=== PATIENT | female | born 1980 | race Caucasian/White ===

== ENCOUNTER 2018-07-30 22:17 | Emergency (ER) | payer SELFPAY ==
[2018-07-30] MEDS ORDERED: Ketorolac 30 MG/ML SDV IVPUSH ONE (22:42)
[2018-07-30] MEDS ORDERED: Sodium Chloride 0.9% 2.5 ML Syringe FLUSH PRN (22:42)
[2018-07-30] MEDS ORDERED: Sodium Chloride 0.9% 1,000 ML IV ONE ×2 (22:42→23:31)
[2018-07-30] MEDS ORDERED: Ondansetron 4 MG/2 ML SDV IVPUSH ONE (22:42)
[2018-07-30] MEDS ORDERED: Sodium Chloride 0.9% 10 ML Syringe FLUSH PRN (22:42)
--- NOTE | 2018-07-30 22:48 | EDM.PDOC ---
ED HPI GENERAL MEDICAL PROBLEM - General Chief Complaint: Back Pain or Injury Stated Complaint: PT HAS BACK PAIN Time Seen by Provider: 07/30/18 22:29 - History of Present Illness INITIAL COMMENTS - FREE TEXT/NARRATIVE: HISTORY AND PHYSICAL: History of present illness: The patient is a 38-year-old female with a significant past medical history of breast cancer for which she had bilateral mastectomy and reconstruction and was told that she was in remission and presents with several weeks of just not feeling well feeling rundown generalized weakness and malaise and over the last 4 days has had lumbar back pain nausea vomiting no appetite and decreased urine output and bowel movements. The patient says that her last bowel movement was normal and she is having small bowel movements that are not hard or diarrhea and not black or bloody. She says she has no appetite and is not eating or drinking very much. The patient does smoke cigarettes and has tried marijuana but denies any other drug use and has no alcohol use. The patient has a history of a bilateral tubal ligation and a cervical ablation and says that last week she did have some spotting of dark blood which she has never had before but she is currently not spotting. 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 The patient has never been tested for the Braca gene but she says that 2 of her sisters did test positive. The patient has no headache or neck pain no chest pain or shortness of breath no cough or upper respiratory symptoms. When she urinates it is not burning or painful and there is no hematuria she does says is dark-colored that she thought also because she has not been taking much fluids. She says that when she does eat or drink that has a metallic taste and she gets nauseated. She has not been able to tolerate anything over the last several days due to the vomiting. She does not have a local provider and she says that she does not do her cancer surveillance on the annual basis. She says that with her reconstructive surgery on her breast they are all implant but she has not felt any unusual masses or seen any skin changes. The patient says that she has lost weight over the last few weeks and cannot quantitate it but she says that she is wearing clothes that she has not worn for many years because they were too tight. Review of systems: As per history of present illness and below otherwise all systems reviewed and negative. Past medical history: As per history of present illness and as reviewed below otherwise noncontributory. Surgical history: As per history of present illness and as reviewed below otherwise noncontributory. Social history: No reported history of drug or alcohol abuse. Family history: As per history of present illness and as reviewed below otherwise noncontributory. Physical exam: General: Well-developed well-nourished female who is nontoxic and vital signs are noted by me. Patient moves easily in the ED and ambulates without assistance. HEENT: Atraumatic, normocephalic, pupils reactive, negative for conjunctival pallor or scleral icterus, mucous membranes moist, throat clear, neck supple, nontender, trachea midline. There is no cervical adenopathy or nuchal rigidity Lungs: Clear to auscultation, breath sounds equal bilaterally, chest nontender. No wheezing stridor or work of breathing There is no axillary lymphadenopathy and no overt masses or lesions in the breasts in the surrounding tissue around the implants Heart: S1S2, regular rhythm and tachycardic rate of my evaluation but no overt murmurs Abdomen: Soft, nondistended, nontender. Negative for masses or hepatosplenomegaly. Negative for costovertebral tenderness. Pelvis: Stable nontender. Genitourinary: Deferred. Rectal: Deferred. Extremities: Atraumatic, negative for cords or calf pain. Neurovascular unremarkable. Full range of motion without defects or deficits Neuro: Awake, alert, oriented. Cranial nerves II through XII unremarkable. Cerebellum unremarkable. Motor and sensory unremarkable throughout. Exam nonfocal. Back: There are no midline step-offs in his defects of the thoracic or lumbar spine no posterior rib or posterior pelvis tenderness and no soft tissue injuries. The patient indicates the upper lumbar area as the site of her discomfort and it is in a bandlike bilateral distribution but there is no reproducible pain on palpation Diagnostics: CBC CMP amylase lipase lactate magnesium level UA with reflex TSH chest x-ray CT scan of the abdomen and pelvis Therapeutics: IV fluids Zofran Toradol Patient's heart rate has normalized with IV fluids. I discussed all testing results with the patient including her potassium of 3.3 , and I have advised eating potassium-rich foods, her dehydration and I've advised pushing hydration as well as her CT scan findings of questionable pelvic congestion and mild disc bulging at L4-L5 L5-S1. The patient has Dr. Cheney at [facility] as her provider and she would like to follow-up with him first and not pursue gynecology for the possible pelvic congestion and that as a possible explanation for her vaginal spotting. I told her that this abnormal bleeding does need to be explored further and that she does need to get that referral from Dr. Cheney and she does not want to code to one of our doctors. She says she does not want to see our providers for this and wants to see [facility]. As for the disc bulges she says that this would explain the back pain she has had and she does not want any pain medications as she does not do well with them. She says she will use [id number] meds and she is agreeable to do a Medrol Dosepak. I strongly advised her to call Dr. Cheney first thing in the morning and schedule this follow-up to further evaluate her poor appetite and weight loss as we were unable to find answers for these problems here. She states understanding Impression: Lower back pain with disc disease, rule out pelvic congestion syndrome, anorexia and weight loss etiology unclear Definitive disposition and diagnosis as appropriate pending reevaluation and review of above. Bilateral Back Pain Score (Numeric/FACES): 8 - Related Data Allergies Allergy/AdvReac Type Severity Reaction Status Date / Time bupropion [From Wellbutrin] Allergy Hives Verified 07/30/18 22:34 theophylline Allergy Other Verified 07/30/18 22:34 Home Meds: Home Meds . [No Known Home Meds] 07/30/18 [History] ED ROS GENERAL - Review of Systems Review Of Systems: ROS reveals no pertinent complaints other than HPI. ED EXAM, GENERAL - Physical Exam Exam: See Below (See dictation) Course - Vital Signs Last Recorded V/S: Last Vital Signs Temp 36.6 C 07/30/18 22:28 Pulse 65 07/31/18 00:25 Resp 18 07/31/18 00:25 BP 108/64 07/31/18 00:25 Pulse Ox 95 07/31/18 00:25 - Orders/Labs/Meds Orders: Active Orders 24 hr Category Date Time Status Sodium Chloride 0.9% [Saline Flush] Med 07/30/18 22:42 Active 10 ml FLUSH ASDIRECTED PRN Sodium Chloride 0.9% [Saline Flush] Med 07/30/18 22:42 Active 2.5 ml FLUSH ASDIRECTED PRN Saline Lock Insert [OM.PC] Stat Oth 07/30/18 22:41 Ordered Medication Orders Sodium Chloride (Saline Flush) 10 ml FLUSH ASDIRECTED PRN PRN Reason: Keep Vein Open Sodium Chloride (Saline Flush) 2.5 ml FLUSH ASDIRECTED PRN PRN Reason: Keep Vein Open Labs: Laboratory Tests 07/30/18 07/30/18 07/30/18 Range/Units 22:46 22:46 22:46 WBC 7.17 (4.0-11.0) K/uL RBC 4.66 (4.30-5.90) M/uL Hgb 14.8 (12.0-16.0) g/dL Hct 42.3 (36.0-46.0) % MCV 90.8 (80.0-98.0) fL MCH 31.8 (27.0-32.0) pg MCHC 35.0 (31.0-37.0) g/dL RDW Std Deviation 42.9 (28.0-62.0) fl RDW Coeff of Hawa 13 (11.0-15.0) % Plt Count 234 (150-400) K/uL MPV 10.70 (7.40-12.00) fL Neut % (Auto) 53.1 (48.0-80.0) % Lymph % (Auto) 34.3 (16.0-40.0) % Sargent % (Auto) 9.8 (0.0-15.0) % Eos % (Auto) 2.0 (0.0-7.0) % Baso % (Auto) 0.8 (0.0-1.5) % Neut # (Auto) 3.8 (1.4-5.7) K/uL Lymph # (Auto) 2.5 H (0.6-2.4) K/uL Sargent # (Auto) 0.7 (0.0-0.8) K/uL Eos # (Auto) 0.1 (0.0-0.7) K/uL Baso # (Auto) 0.1 (0.0-0.1) K/uL Nucleated RBC % 0.0 /100WBC Nucleated RBCs # 0 K/uL Lactate 1.2 (0.20-2.00) mmol/L Sodium 141 (136-145) mmol/L Potassium 3.3 L (3.5-5.1) mmol/L Chloride 101 (98-107) mmol/L Carbon Dioxide 20.7 L (21.0-32.0) mmol/L BUN 9 (7.0-18.0) mg/dL Creatinine 0.8 (0.6-1.0) mg/dL Est Cr Clr Drug Dosing 99.39 mL/min Estimated GFR (MDRD) > 60.0 ml/min Glucose 80 (74-106) mg/dL Calcium 9.0 (8.5-10.1) mg/dL Magnesium 1.7 L (1.8-2.4) mg/dL Total Bilirubin 0.6 (0.2-1.0) mg/dL AST 10 L (15-37) IU/L ALT 13 L (14-63) IU/L Alkaline Phosphatase 39 L (46-116) U/L Total Protein 7.3 (6.4-8.2) g/dL Albumin 4.4 (3.4-5.0) g/dL Globulin 2.9 (2.6-4.0) g/dL Albumin/Globulin Ratio 1.5 (0.9-1.6) Amylase 30 (25-115) U/L Lipase 79 (73-393) U/L TSH 3rd Generation 1.37 (0.36-3.74) uIU/mL Urine Color Urine Appearance Urine pH (5.0-8.0) Ur Specific Ada (1.001-1.035) Urine Protein (NEGATIVE) mg/dL Urine Glucose (UA) (NEGATIVE) mg/dL Urine Ketones (NEGATIVE) mg/dL Urine Occult Blood (NEGATIVE) Urine Nitrite (NEGATIVE) Urine Bilirubin (NEGATIVE) Urine Ictotest Urine Urobilinogen (<2.0) EU/dL Ur Leukocyte Esterase (NEGATIVE) Urine RBC (0-2/HPF) Urine WBC (0-5/HPF) Ur Epithelial Cells (NONE-FEW) Urine Bacteria (NEGATIVE) 07/30/18 Range/Units 22:50 WBC (4.0-11.0) K/uL RBC (4.30-5.90) M/uL Hgb (12.0-16.0) g/dL Hct (36.0-46.0) % MCV (80.0-98.0) fL MCH (27.0-32.0) pg MCHC (31.0-37.0) g/dL RDW Std Deviation (28.0-62.0) fl RDW Coeff of Hawa (11.0-15.0) % Plt Count (150-400) K/uL MPV (7.40-12.00) fL Neut % (Auto) (48.0-80.0) % Lymph % (Auto) (16.0-40.0) % Sargent % (Auto) (0.0-15.0) % Eos % (Auto) (0.0-7.0) % Baso % (Auto) (0.0-1.5) % Neut # (Auto) (1.4-5.7) K/uL Lymph # (Auto) (0.6-2.4) K/uL Sargent # (Auto) (0.0-0.8) K/uL Eos # (Auto) (0.0-0.7) K/uL Baso # (Auto) (0.0-0.1) K/uL Nucleated RBC % /100WBC Nucleated RBCs # K/uL Lactate (0.20-2.00) mmol/L Sodium (136-145) mmol/L Potassium (3.5-5.1) mmol/L Chloride (98-107) mmol/L Carbon Dioxide (21.0-32.0) mmol/L BUN (7.0-18.0) mg/dL Creatinine (0.6-1.0) mg/dL Est Cr Clr Drug Dosing mL/min Estimated GFR (MDRD) ml/min Glucose (74-106) mg/dL Calcium (8.5-10.1) mg/dL Magnesium (1.8-2.4) mg/dL Total Bilirubin (0.2-1.0) mg/dL AST (15-37) IU/L ALT (14-63) IU/L Alkaline Phosphatase (46-116) U/L Total Protein (6.4-8.2) g/dL Albumin (3.4-5.0) g/dL Globulin (2.6-4.0) g/dL Albumin/Globulin Ratio (0.9-1.6) Amylase (25-115) U/L Lipase (73-393) U/L TSH 3rd Generation (0.36-3.74) uIU/mL Urine Color YELLOW Urine Appearance CLEAR Urine pH 5.5 (5.0-8.0) Ur Specific Ada >= 1.030 (1.001-1.035) Urine Protein TRACE H (NEGATIVE) mg/dL Urine Glucose (UA) NEGATIVE (NEGATIVE) mg/dL Urine Ketones >=80 (NEGATIVE) mg/dL Urine Occult Blood NEGATIVE (NEGATIVE) Urine Nitrite NEGATIVE (NEGATIVE) Urine Bilirubin SMALL H (NEGATIVE) Urine Ictotest NEGATIVE Urine Urobilinogen 0.2 (<2.0) EU/dL Ur Leukocyte Esterase NEGATIVE (NEGATIVE) Urine RBC 1-2 (0-2/HPF) Urine WBC 0-2 (0-5/HPF) Ur Epithelial Cells MODERATE (NONE-FEW) Urine Bacteria FEW (NEGATIVE) Meds: Medications Generic Name Dose Route Start Last Admin Trade Name Martin PRN Reason Stop Dose Admin Sodium Chloride 10 ml 07/30/18 22:42 Saline Flush FLUSH ASDIRECTED PRN Keep Vein Open Sodium Chloride 2.5 ml 07/30/18 22:42 Saline Flush FLUSH ASDIRECTED PRN Keep Vein Open Discontinued Medications Generic Name Dose Route Start Last Admin Trade Name Martin PRN Reason Stop Dose Admin Sodium Chloride 1,000 mls @ 999 mls/hr 07/30/18 22:42 07/30/18 22:48 Normal Saline IV 07/30/18 23:42 999 mls/hr STAT ONE Administration Sodium Chloride 1,000 mls @ 999 mls/hr 07/30/18 23:31 07/31/18 00:29 Normal Saline IV 07/31/18 00:31 999 mls/hr STAT ONE Administration Iopamidol 100 ml 07/31/18 00:18 07/31/18 00:27 Isovue-370 (76%) IVPUSH 07/31/18 00:19 100 ml ONETIME ONE Administration Ketorolac Tromethamine 30 mg 07/30/18 22:42 07/30/18 22:50 Toradol IVPUSH 07/30/18 22:43 30 mg ONETIME ONE Administration Ondansetron HCl 4 mg 07/30/18 22:42 07/30/18 22:49 Roosevelt IVPUSH 07/30/18 22:43 4 mg ONETIME ONE Administration Departure - Departure Time of Disposition: 01:47 Disposition: Home, Self-Care 01 Condition: Good Clinical Impression: Lumbar disc disease, Unexplained weight loss - Discharge Information Referrals: PCP,None [Primary Care Provider] - Forms: ED Department Discharge Additional Instructions: The following information is given to patients seen in the emergency department who are being discharged to home. This information is to outline your options for follow-up care. We provide all patients seen in our emergency department with a follow-up referral. The need for follow-up, as well as the timing and circumstances, are variable depending upon the specifics of your emergency department visit. If you don't have a primary care physician on staff, we will provide you with a referral. We always advise you to contact your personal physician following an emergency department visit to inform them of the circumstance of the visit and for follow-up with them and/or the need for any referrals to a consulting specialist. The emergency department will also refer you to a specialist when appropriate. This referral assures that you have the opportunity for followup care with a specialist. All of these measure are taken in an effort to provide you with optimal care, which includes your followup. Under all circumstances we always encourage you to contact your private physician who remains a resource for coordinating your care. When calling for followup care, please make the office aware that this follow-up is from your recent emergency room visit. If for any reason you are refused follow-up, please contact the [facility] emergency department at and ask to speak to the emergency department charge nurse. [address] [place] [address] Push hydration with electrolyte solutions as well as water and avoid caffeinated products to improve your hydration status. Please try to eat some potassium-rich foods such as bananas and whole gr for your slightly low potassium level. Please fill the prescription for the Medrol Dosepak and use [id number] medications for pain management for your lumbar back pain. Please contact Dr. Cheney in the morning and schedule a follow-up appointment so that you can further investigate your unexplained weight loss as well as get referral to a technical healthcare consultant of your choosing. Return to the ER As needed and as discussed - My Orders Last 24 Hours: My Active Orders 07/30/18 22:41 Saline Lock Insert [OM.PC] Stat 07/30/18 22:42 Sodium Chloride 0.9% [Saline Flush] 10 ml FLUSH ASDIRECTED PRN Sodium Chloride 0.9% [Saline Flush] 2.5 ml FLUSH ASDIRECTED PRN - Assessment/Plan Last 24 Hours: My Active Orders 07/30/18 22:41 Saline Lock Insert [OM.PC] Stat 07/30/18 22:42 Sodium Chloride 0.9% [Saline Flush] 10 ml FLUSH ASDIRECTED PRN Sodium Chloride 0.9% [Saline Flush] 2.5 ml FLUSH ASDIRECTED PRN
[2018-07-30 23:39] LABS: CHLORIDE,CL 101 mmol/L (98-107); SODIUM,NA 141 mmol/L (136-145)
--- NOTE | 2018-07-30 23:43 | CR ---
INDICATION: pain/sob TECHNIQUE: Chest 1 view. COMPARISON: None. FINDINGS: Cardiovascular and mediastinum: Heart size and vasculature are normal in caliber and appearance. Mediastinum is within normal limits. Lungs and pleural space: Lungs are clear. No sign of infiltrate or mass. No sign of pleural effusion. No pneumothorax. Bones and soft tissues: No significant findings. IMPRESSION: Unremarkable chest. Dictated by: Hernando Sharp MD @ 07/30/2018 23:40:40 (Electronically Signed)
[2018-07-31] MEDS ORDERED: Iopamidol 755 Mg/ML 100 ML Bottle IVPUSH ONE (00:18)
--- NOTE | 2018-07-31 01:29 | CT ---
INDICATION: Abdominal pain TECHNIQUE: CT abdomen and pelvis acquired with IV contrast. 100 mL of Isovue 370 administered. COMPARISON: None available FINDINGS: Lower chest: Unremarkable. Breast implants. Liver: Unremarkable. Spleen: Unremarkable. Pancreas: Unremarkable. Gallbladder and bile ducts: Unremarkable. Adrenal glands: Unremarkable. Kidneys: No hydronephrosis. Subcentimeter right renal low-density lesions, statistically small cysts. GI tract: No bowel obstruction. No evidence of appendicitis. No significant pericolonic changes. Vascular structures: Normal aortic caliber. Asymmetrical opacification of the left parametrial and gonadal veins. Lymph nodes: Unremarkable. Miscellaneous: No free air or significant free fluid. Pelvic Organs: A 1.1 x 0.7 cm low-attenuation focus in the right uterine fundus, nonspecific. A contracted bladder. Bones: Disc protrusions/extrusions at L4-5 and L5-S1. IMPRESSION: No evidence of an acute process in the abdomen or pelvis. Asymmetrical opacification of the left parametrial and gonadal veins. Correlate clinically for unilateral pelvic congestion syndrome. A small uterine low-density focus, nonspecific. Followup with sonographic evaluation. Dictated by Víctor Brya MD @ 07/31/2018 1:28:24 AM Please note that all CT scans at this facility use dose modulation, iterative reconstruction, and/or weight-based dosing when appropriate to reduce radiation dose to as low as reasonably achievable. Dictated by: Víctor Bray MD @ 07/31/2018 01:28:36 (Electronically Signed)
== END 2018-07-31 02:00 | disposition home or self-care (01) ==
LOC: MW.ED 22:17
DX: M51.9 Unspecified thoracic, thoracolumbar and lumbosacral intervertebral disc disorder (principal); R63.4 Abnormal weight loss; Z88.8 Allergy status to other drugs, medicaments and biological substances
CPT/HCPCS: 36415; 71046; 74177; 80053; 81001; 82150; 83605; 83690; 83735; 84443; 85025; 96361; 96374; 96375; 99284; J1885; J2405; J7040; Q9967

== ENCOUNTER 2018-08-07 11:05 | Observation (INO) | payer OTHER ==
--- NOTE | 2018-08-07 11:19 | EDM.PDOC ---
ED HPI GENERAL MEDICAL PROBLEM - General Chief Complaint: Gastrointestinal Problem Stated Complaint: CAN'T EAT OR DRINK Time Seen by Provider: 08/07/18 11:09 - History of Present Illness INITIAL COMMENTS - FREE TEXT/NARRATIVE: HISTORY AND PHYSICAL: History of present illness: Patient is a 38-year-old white female who presents with concern of unexplained weight loss she states several months prior she was approximately 170 pounds she has lost upwards of 30 pounds. Patient states she was seen in the recent past in the ER had a CT scan of her abdomen and a chest x-ray that was remarkable for some degenerative disc disease nothing else. Since then she is not been able to tolerate anything by mouth she states she is basically had 2 popsicles in 8 days she has been seen by her primary care doctor who referred her here today after having had a bad weekend and still not been able tolerate any by mouth. She is a smoker she drinks on hockey weekends and denies any drug abuse. Review of systems: As per history of present illness and below otherwise all systems reviewed and negative. Past medical history: As per history of present illness and as reviewed below otherwise noncontributory. Surgical history: As per history of present illness and as reviewed below otherwise noncontributory. Social history: No reported history of drug or alcohol abuse. Family history: As per history of present illness and as reviewed below otherwise noncontributory. Physical exam: HEENT: Atraumatic, normocephalic, pupils reactive, negative for conjunctival pallor or scleral icterus, mucous membranes dry, throat clear, neck supple, nontender, trachea midline. Lungs: Clear to auscultation, breath sounds equal bilaterally, chest nontender. Heart: S1S2, regular, negative for clicks, rubs, or JVD. Abdomen: Soft, nondistended, nontender. Negative for masses or hepatosplenomegaly. Negative for costovertebral tenderness. Pelvis: Stable nontender. Genitourinary: Deferred. Rectal: Deferred. Extremities: Atraumatic, negative for cords or calf pain. Neurovascular unremarkable. Neuro: Awake, alert, oriented. Cranial nerves II through XII unremarkable. Cerebellum unremarkable. Motor and sensory unremarkable throughout. Exam nonfocal. Diagnostics: CBC CMP EKG UA TSH H pylori hCG Therapeutics: Saline 1 L bolus Zofran 4 mg IV Impression: #1 unexplained weight loss #2 odynophagia Definitive disposition and diagnosis as appropriate pending reevaluation and review of above. - Related Data Allergies Allergy/AdvReac Type Severity Reaction Status Date / Time bupropion [From Wellbutrin] Allergy Hives Verified 08/07/18 11:12 theophylline Allergy Other Verified 08/07/18 11:12 Home Meds: Home Meds Promethazine [Phenergan] 25 mg PO TID PRN 08/07/18 [History] Past Medical History HEENT History: Reports: None Cardiovascular History: Reports: None Respiratory History: Reports: Asthma Gastrointestinal History: Reports: Hiatal Hernia Genitourinary History: Reports: None [employer] History: Reports: Endometrial Ablation, Musculoskeletal History: Reports: None Neurological History: Reports: None Psychiatric History: Reports: None Endocrine/Metabolic History: Reports: None Hematologic History: Reports: None Oncologic (Cancer) History: Reports: Breast Dermatologic History: Reports: Eczema - Infectious Disease History Infectious Disease History: Reports: Chicken Pox - Past Surgical History GI Surgical History: Reports: Appendectomy, Colonoscopy, EGD Female Surgical History: Reports: Breast Biopsy, Breast Implant, Breast Reconstruction, Section, Endometrial Ablation, Mastectomy, Tubal Ligation Oncologic Surgical History: Reports: Biopsy of Breast, Lumpectomy, Mastectomy Social & Family History - Caffeine Use Caffeine Use: Reports: Coffee ED ROS GENERAL - Review of Systems Review Of Systems: ROS reveals no pertinent complaints other than HPI. ED EXAM, GENERAL - Physical Exam Exam: See Below (See dictation) Course - Vital Signs Last Recorded V/S: Last Vital Signs Temp 36.3 C 08/07/18 11:15 Pulse 78 08/07/18 12:00 Resp 13 08/07/18 12:00 BP 100/73 08/07/18 12:00 Pulse Ox 99 08/07/18 12:00 - Orders/Labs/Meds Orders: Active Orders 24 hr Category Date Time Status EKG Documentation Completion [RC] STAT Care 08/07/18 11:35 Active TSH [CHEM] Stat Lab 08/07/18 11:37 Received cefTRIAXone [Rocephin in Dextrose,Iso-Osm 1 GM/50 ML] 1 Med 08/07/18 13:17 Active gm Premix Bag 1 bag IV ONETIME Medication Orders Ceftriaxone Sodium/Dextrose 1 (gm/ Premix) 50 mls @ 100 mls/hr IV ONETIME ONE Stop: 08/07/18 13:46 Labs: Laboratory Tests 08/07/18 08/07/18 08/07/18 Range/Units 11:20 11:20 11:20 WBC 6.17 (4.0-11.0) K/uL RBC 5.07 (4.30-5.90) M/uL Hgb 15.8 (12.0-16.0) g/dL Hct 46.5 H (36.0-46.0) % MCV 91.7 (80.0-98.0) fL MCH 31.2 (27.0-32.0) pg MCHC 34.0 (31.0-37.0) g/dL RDW Std Deviation 44.9 (28.0-62.0) fl RDW Coeff of Hawa 13 (11.0-15.0) % Plt Count 206 (150-400) K/uL MPV 10.80 (7.40-12.00) fL Neut % (Auto) 60.8 (48.0-80.0) % Lymph % (Auto) 27.2 (16.0-40.0) % [place] % (Auto) 9.4 (0.0-15.0) % Eos % (Auto) 1.5 (0.0-7.0) % Baso % (Auto) 1.1 (0.0-1.5) % Neut # (Auto) 3.8 (1.4-5.7) K/uL Lymph # (Auto) 1.7 (0.6-2.4) K/uL [place] # (Auto) 0.6 (0.0-0.8) K/uL Eos # (Auto) 0.1 (0.0-0.7) K/uL Baso # (Auto) 0.1 (0.0-0.1) K/uL Nucleated RBC % 0.0 /100WBC Nucleated RBCs # 0 K/uL INR 1.17 Sodium 141 (136-145) mmol/L Potassium 3.3 L (3.5-5.1) mmol/L Chloride 102 (98-107) mmol/L Carbon Dioxide 21.2 (21.0-32.0) mmol/L BUN 12 (7.0-18.0) mg/dL Creatinine 0.9 (0.6-1.0) mg/dL Est Cr Clr Drug Dosing 84.47 mL/min Estimated GFR (MDRD) > 60.0 ml/min Glucose 99 (74-106) mg/dL Calcium 9.3 (8.5-10.1) mg/dL Total Bilirubin 0.6 (0.2-1.0) mg/dL AST 13 L (15-37) IU/L ALT 15 (14-63) IU/L Alkaline Phosphatase 39 L (46-116) U/L Total Protein 7.9 (6.4-8.2) g/dL Albumin 4.8 (3.4-5.0) g/dL Globulin 3.1 (2.6-4.0) g/dL Albumin/Globulin Ratio 1.5 (0.9-1.6) Lipase 85 (73-393) U/L HCG, Qual (NEG) Urine Color Urine Appearance Urine pH (5.0-8.0) Ur Specific [place] (1.001-1.035) Urine Protein (NEGATIVE) mg/dL Urine Glucose (UA) (NEGATIVE) mg/dL Urine Ketones (NEGATIVE) mg/dL Urine Occult Blood (NEGATIVE) Urine Nitrite (NEGATIVE) Urine Bilirubin (NEGATIVE) Urine Ictotest Urine Urobilinogen (<2.0) EU/dL Ur Leukocyte Esterase (NEGATIVE) Urine RBC (0-2/HPF) Urine WBC (0-5/HPF) Ur Epithelial Cells (NONE-FEW) Urine Bacteria (NEGATIVE) Urine Mucus (NONE-MOD) Urinalysis Comment H. pylori IgG Antibody (NEG) 08/07/18 08/07/18 08/07/18 Range/Units 11:20 11:28 11:37 WBC (4.0-11.0) K/uL RBC (4.30-5.90) M/uL Hgb (12.0-16.0) g/dL Hct (36.0-46.0) % MCV (80.0-98.0) fL MCH (27.0-32.0) pg MCHC (31.0-37.0) g/dL RDW Std Deviation (28.0-62.0) fl RDW Coeff of Hawa (11.0-15.0) % Plt Count (150-400) K/uL MPV (7.40-12.00) fL Neut % (Auto) (48.0-80.0) % Lymph % (Auto) (16.0-40.0) % [place] % (Auto) (0.0-15.0) % Eos % (Auto) (0.0-7.0) % Baso % (Auto) (0.0-1.5) % Neut # (Auto) (1.4-5.7) K/uL Lymph # (Auto) (0.6-2.4) K/uL [place] # (Auto) (0.0-0.8) K/uL Eos # (Auto) (0.0-0.7) K/uL Baso # (Auto) (0.0-0.1) K/uL Nucleated RBC % /100WBC Nucleated RBCs # K/uL INR Sodium (136-145) mmol/L Potassium (3.5-5.1) mmol/L Chloride (98-107) mmol/L Carbon Dioxide (21.0-32.0) mmol/L BUN (7.0-18.0) mg/dL Creatinine (0.6-1.0) mg/dL Est Cr Clr Drug Dosing mL/min Estimated GFR (MDRD) ml/min Glucose (74-106) mg/dL Calcium (8.5-10.1) mg/dL Total Bilirubin (0.2-1.0) mg/dL AST (15-37) IU/L ALT (14-63) IU/L Alkaline Phosphatase (46-116) U/L Total Protein (6.4-8.2) g/dL Albumin (3.4-5.0) g/dL Globulin (2.6-4.0) g/dL Albumin/Globulin Ratio (0.9-1.6) Lipase (73-393) U/L HCG, Qual NEGATIVE (NEG) Urine Color YELLOW Urine Appearance SLT CLOUDY Urine pH 6.0 (5.0-8.0) Ur Specific [place] >= 1.030 (1.001-1.035) Urine Protein 30 H (NEGATIVE) mg/dL Urine Glucose (UA) NEGATIVE (NEGATIVE) mg/dL Urine Ketones >=80 (NEGATIVE) mg/dL Urine Occult Blood TRACE-INTACT H (NEGATIVE) Urine Nitrite NEGATIVE (NEGATIVE) Urine Bilirubin MODERATE H (NEGATIVE) Urine Ictotest Urine Urobilinogen 0.2 (<2.0) EU/dL Ur Leukocyte Esterase NEGATIVE (NEGATIVE) Urine RBC 0-2 (0-2/HPF) Urine WBC 3-5 (0-5/HPF) Ur Epithelial Cells MODERATE (NONE-FEW) Urine Bacteria 2+ H (NEGATIVE) Urine Mucus MODERATE (NONE-MOD) Urinalysis Comment H. pylori IgG Antibody POSITIVE H (NEG) Meds: Medications Generic Name Dose Route Start Last Admin Trade Name Freq PRN Reason Stop Dose Admin Ceftriaxone Sodium/Dextrose 1 50 mls @ 100 mls/hr 08/07/18 13:17 gm/ Premix IV 08/07/18 13:46 ONETIME ONE Discontinued Medications Generic Name Dose Route Start Last Admin Trade Name Freq PRN Reason Stop Dose Admin Sodium Chloride 1,000 mls @ 999 mls/hr 08/07/18 11:35 08/07/18 11:42 Normal Saline IV 08/07/18 12:35 999 mls/hr STAT ONE Administration Iopamidol 75 ml 08/07/18 12:36 08/07/18 12:37 Isovue Multipack-370 (76%) IVPUSH 08/07/18 12:37 75 ml ONETIME ONE Administration Ondansetron HCl 4 mg 08/07/18 11:35 08/07/18 11:42 Zofran IVPUSH 08/07/18 11:36 4 mg ONETIME ONE Administration Departure - Departure Time of Disposition: 13:23 Disposition: Refer to Observation Condition: Good Clinical Impression: Unexplained weight loss, Odynophagia, Dehydration, UTI (urinary tract infection ) - Discharge Information Referrals: Eduar Verma MD [Primary Care Provider] - Forms: ED Department Discharge - My Orders Last 24 Hours: My Active Orders 08/07/18 11:35 EKG Documentation Completion [RC] STAT 08/07/18 11:37 TSH [CHEM] Stat 08/07/18 13:17 cefTRIAXone [Rocephin in Dextrose,Iso-Osm 1 GM/50 ML] 1 gm Premix Bag 1 bag IV ONETIME - Assessment/Plan Last 24 Hours: My Active Orders 08/07/18 11:35 EKG Documentation Completion [RC] STAT 08/07/18 11:37 TSH [CHEM] Stat 08/07/18 13:17 cefTRIAXone [Rocephin in Dextrose,Iso-Osm 1 GM/50 ML] 1 gm Premix Bag 1 bag IV ONETIME
[2018-08-07] MEDS ORDERED: Sodium Chloride 0.9% 1,000 ML IV ONE (11:35)
[2018-08-07] MEDS ORDERED: Ondansetron 4 MG/2 ML SDV IVPUSH ONE (11:35)
[2018-08-07 12:10] LABS: CHLORIDE,CL 102 mmol/L (98-107); SODIUM,NA 141 mmol/L (136-145)
[2018-08-07] MEDS ORDERED: Iopamidol 755 MG/ML 200 ML Multipack Bottle IVPUSH ONE (12:36)
--- NOTE | 2018-08-07 13:07 | CT ---
EXAMINATION: CT chest with contrast HISTORY: Shortness of breath COMPARISON: Radiograph dated 07/30/2018 TECHNIQUE: Axial CT imaging obtained through the chest following the administration of 75 mL of Isovue-370 left antecubital fossa. Coronal and sagittal reconstructions obtained. FINDINGS: The lung bases are clear, no pleural effusion. The heart is normal in size without a pericardial effusion. No mediastinal, hilar, or axillary lymphadenopathy. The thoracic aorta is normal in caliber. The main and central pulmonary arteries are patent without evidence of a pulmonary embolism. Central airways are clear. Breast implants are noted. There is focal fatty infiltration near the falciform ligament. No suspicious osseous abnormalities identified. IMPRESSION: No acute cardiopulmonary finding.
[2018-08-07] MEDS ORDERED: cefTRIAXone 1 GM in Premix Bag 1 BAG IV ONE (13:17)
[2018-08-07] MEDS ORDERED: Sodium Chloride 0.45% with KCl 1,000 ML IV SCH (14:30)
[2018-08-07] MEDS ORDERED: Lactated Ringers 1,000 ML IV ONE (14:38)
--- NOTE | 2018-08-07 14:54 | PCM.HP ---
<Arabella Luna M - Last Filed: 08/07/18 15:15> H&P History of Present Illness - General Date of Service: 08/07/18 Admit Problem/Dx: Admission Diagnosis/Problem Admission Diagnosis/Problem Unexplained weight loss Source of Information: Patient History Limitations: Reports: No Limitations - History of Present Illness Initial Comments - Free Text/Narative: This 38 year old female with pmh of breast ca with double mastectomy, hiatal hernia with past H pylori infection presented to the ED today with continuing concerns of N/V and painful, difficult swallowing. She reports this all started approximately 1 week ago, but reports the N/V started intermittently before then. She reports pain is elicited after she eats, which then she experiences N/ V She reports she is having a tough time swallowing anything, even water. She reports she lets popsicles melt to then swallow them and even small tablets of Phenergan she is having a tough time swallowing. She denies overt abdominal pain , does not know when her last bowel movement was. . She reports in she was diagnosed with hiatal hernia and H pylori. She has had no issues since then. She denies black or blood in BMs, no blood in her emesis or no coffee ground emesis. She denies fevers, chills or dyspnea. NO chest pain or abdominal pain. reports some burning with urination. No neurological concerns. Mild headache intermittently. No neck pain or visual concerns. In the ED, no leukocytosis noted. Hgb 15.8 and HCT 46.5. K+ 3.3 Mg 1.8 and phos 2.5 TSH 1.59. HCG negative. H pylori antibody +, Chest CT negative. UA very concentrated, +2 bacteria noted. Rocephin given in the ED along with Zofran and 1 L fluids. She was admitted for N/V and odynophagia. Upon review of outpatient record, she did recently have RUQ US with Dr Verma as well, which was negative. HIDA scan was possibility as well as EGD to further evaluate causes. PCP, Dr Verma back Pain Score (Numeric/FACES): 2 - Related Data Allergies/Adverse Reactions: Allergies Allergy/AdvReac Type Severity Reaction Status Date / Time bupropion [From Wellbutrin] Allergy Hives Verified 08/07/18 11:12 theophylline Allergy Other Verified 08/07/18 11:12 Home Medications: Home Meds Promethazine [Phenergan] 25 mg PO TID PRN 08/07/18 [History] Past Medical History HEENT History: Reports: None Cardiovascular History: Reports: None. Denies: Afib, Blood Clots/VTE/DVT, CAD, [place] Respiratory History: Reports: Asthma. Denies: COPD Gastrointestinal History: Reports: Helicobacter Pylori, Hiatal Hernia Genitourinary History: Reports: None. Denies: Chronic Renal Insuffiency [employer] CONTACT LENS History: Reports: Endometrial Ablation, Musculoskeletal History: Reports: None Neurological History: Reports: None. Denies: CVA, TIA Psychiatric History: Reports: None Endocrine/Metabolic History: Reports: None. Denies: Diabetes, Type II, Obesity/ BMI 30+ Hematologic History: Reports: None Oncologic (Cancer) History: Reports: Breast (double mastectomy with reconstruction) Dermatologic History: Reports: Eczema - Infectious Disease History Infectious Disease History: Reports: Chicken Pox - Past Surgical History GI Surgical History: Reports: Appendectomy, Colonoscopy, EGD Female Surgical History: Reports: Breast Biopsy, Breast Implant, Breast Reconstruction, Section, Endometrial Ablation, Mastectomy, Tubal Ligation Oncologic Surgical History: Reports: Biopsy of Breast, Lumpectomy, Mastectomy Social & Family History - Family History Family Medical History: Noncontributory - Tobacco Use Smoking Status *Q: Current Every Day Smoker Years of Tobacco use: 5 Packs/Tins Daily: 0.5 Smoking Cessation Information Provided To Patient: Yes - Caffeine Use Caffeine Use: Reports: Coffee - Alcohol Use Alcohol Use History: No Alcohol Use Frequency: Socially - Recreational Drug Use Recreational Drug Use: Yes Recreational Drug Type: Reports: Marijuana/Hashish Recreational Drug Use Frequency: Rarely - Living Situation & Occupation Occupation: Employed H&P Review of Systems - Review of Systems: Review Of Systems: See Below General: Reports: Malaise, Weakness, Decreased Appetite. Denies: Fever, Chills HEENT: Reports: Headaches (intermittently). Denies: Sinus Congestion, Sore Throat, Visual Changes Pulmonary: Reports: No Symptoms. Denies: Shortness of Breath, Cough, Sputum Cardiovascular: Reports: No Symptoms. Denies: Chest Pain, Edema, Lightheadedness, Syncope Gastrointestinal: Reports: Black Stool, Bloody Stool, Constipation, Decreased Appetite, Difficulty Swallowing, Nausea, Vomiting. Denies: Abdominal Pain Genitourinary: Reports: Dysuria, Burning. Denies: Urgency Musculoskeletal: Reports: No Symptoms. Denies: Neck Pain Skin: Reports: No Symptoms Psychiatric: Reports: No Symptoms Neurological: Reports: No Symptoms Hematologic/Lymphatic: Reports: No Symptoms Immunologic: Reports: No Symptoms Exam - Exam Exam: See Below - Vital Signs Vital Signs: Last Vital Signs Temp 98.5 F 08/07/18 14:10 Pulse 80 08/07/18 14:10 Resp 16 08/07/18 14:10 BP 109/76 08/07/18 14:10 Pulse Ox 99 08/07/18 14:10 Weight: 64.4 kg - Exam General: Alert, Oriented, Cooperative HEENT: Conjunctiva Clear, Posterior Pharynx Clear. No: Mucosa Moist & Nicolaus ( tongue and mucous membranes very dry ) Neck: Supple, Trachea Midline Lungs: Clear to Auscultation, Normal Respiratory Effort Cardiovascular: Regular Rate, Regular Rhythm GI/Abdominal Exam: Normal Bowel Sounds, Soft, No Mass, Tender (mild epigastric and LUQ tenderness to palpation.) Back Exam: Normal Inspection, Full Range of Motion Extremities: Normal Inspection, Normal Range of Motion, Non-Tender, No Pedal Edema Skin: Warm, Dry, Other (mild tenting noted.) Neuro Extensive - Mental Status: Alert, Oriented x3 Neuro Extensive - Motor, Sensory, Reflexes: CN II-XII Intact Psychiatric: Alert, Normal Affect, Normal Mood - Patient Data Lab Results Last 24 hrs: Laboratory Results - last 24 hr 08/07/18 08/07/18 08/07/18 Range/Units 11:20 11:20 11:20 WBC 6.17 (4.0-11.0) K/uL RBC 5.07 (4.30-5.90) M/uL Hgb 15.8 (12.0-16.0) g/dL Hct 46.5 H (36.0-46.0) % MCV 91.7 (80.0-98.0) fL MCH 31.2 (27.0-32.0) pg MCHC 34.0 (31.0-37.0) g/dL RDW Std Deviation 44.9 (28.0-62.0) fl RDW Coeff of [place] 13 (11.0-15.0) % Plt Count 206 (150-400) K/uL MPV 10.80 (7.40-12.00) fL Neut % (Auto) 60.8 (48.0-80.0) % Lymph % (Auto) 27.2 (16.0-40.0) % [place] % (Auto) 9.4 (0.0-15.0) % Eos % (Auto) 1.5 (0.0-7.0) % Baso % (Auto) 1.1 (0.0-1.5) % Neut # (Auto) 3.8 (1.4-5.7) K/uL Lymph # (Auto) 1.7 (0.6-2.4) K/uL [place] # (Auto) 0.6 (0.0-0.8) K/uL Eos # (Auto) 0.1 (0.0-0.7) K/uL Baso # (Auto) 0.1 (0.0-0.1) K/uL Nucleated RBC % 0.0 /100WBC Nucleated RBCs # 0 K/uL INR 1.17 Sodium 141 (136-145) mmol/L Potassium 3.3 L (3.5-5.1) mmol/L Chloride 102 (98-107) mmol/L Carbon Dioxide 21.2 (21.0-32.0) mmol/L BUN 12 (7.0-18.0) mg/dL Creatinine 0.9 (0.6-1.0) mg/dL Est Cr Clr Drug Dosing 84.47 mL/min Estimated GFR (MDRD) > 60.0 ml/min Glucose 99 (74-106) mg/dL Calcium 9.3 (8.5-10.1) mg/dL Phosphorus (2.6-4.7) mg/dL Magnesium (1.8-2.4) mg/dL Total Bilirubin 0.6 (0.2-1.0) mg/dL AST 13 L (15-37) IU/L ALT 15 (14-63) IU/L Alkaline Phosphatase 39 L (46-116) U/L Total Protein 7.9 (6.4-8.2) g/dL Albumin 4.8 (3.4-5.0) g/dL Globulin 3.1 (2.6-4.0) g/dL Albumin/Globulin Ratio 1.5 (0.9-1.6) Lipase 85 (73-393) U/L TSH 3rd Generation (0.36-3.74) uIU/mL HCG, Qual (NEG) Urine Color Urine Appearance Urine pH (5.0-8.0) Ur Specific [place] (1.001-1.035) Urine Protein (NEGATIVE) mg/dL Urine Glucose (UA) (NEGATIVE) mg/dL Urine Ketones (NEGATIVE) mg/dL Urine Occult Blood (NEGATIVE) Urine Nitrite (NEGATIVE) Urine Bilirubin (NEGATIVE) Urine Ictotest Urine Urobilinogen (<2.0) EU/dL Ur Leukocyte Esterase (NEGATIVE) Urine RBC (0-2/HPF) Urine WBC (0-5/HPF) Ur Epithelial Cells (NONE-FEW) Urine Bacteria (NEGATIVE) Urine Mucus (NONE-MOD) Urinalysis Comment H. pylori IgG Antibody (NEG) 08/07/18 08/07/18 08/07/18 Range/Units 11:20 11:20 11:28 WBC (4.0-11.0) K/uL RBC (4.30-5.90) M/uL Hgb (12.0-16.0) g/dL Hct (36.0-46.0) % MCV (80.0-98.0) fL MCH (27.0-32.0) pg MCHC (31.0-37.0) g/dL RDW Std Deviation (28.0-62.0) fl RDW Coeff of [place] (11.0-15.0) % Plt Count (150-400) K/uL MPV (7.40-12.00) fL Neut % (Auto) (48.0-80.0) % Lymph % (Auto) (16.0-40.0) % [place] % (Auto) (0.0-15.0) % Eos % (Auto) (0.0-7.0) % Baso % (Auto) (0.0-1.5) % Neut # (Auto) (1.4-5.7) K/uL Lymph # (Auto) (0.6-2.4) K/uL [place] # (Auto) (0.0-0.8) K/uL Eos # (Auto) (0.0-0.7) K/uL Baso # (Auto) (0.0-0.1) K/uL Nucleated RBC % /100WBC Nucleated RBCs # K/uL INR Sodium (136-145) mmol/L Potassium (3.5-5.1) mmol/L Chloride (98-107) mmol/L Carbon Dioxide (21.0-32.0) mmol/L BUN (7.0-18.0) mg/dL Creatinine (0.6-1.0) mg/dL Est Cr Clr Drug Dosing mL/min Estimated GFR (MDRD) ml/min Glucose (74-106) mg/dL Calcium (8.5-10.1) mg/dL Phosphorus 2.5 L (2.6-4.7) mg/dL Magnesium 1.8 (1.8-2.4) mg/dL Total Bilirubin (0.2-1.0) mg/dL AST (15-37) IU/L ALT (14-63) IU/L Alkaline Phosphatase (46-116) U/L Total Protein (6.4-8.2) g/dL Albumin (3.4-5.0) g/dL Globulin (2.6-4.0) g/dL Albumin/Globulin Ratio (0.9-1.6) Lipase (73-393) U/L TSH 3rd Generation (0.36-3.74) uIU/mL HCG, Qual NEGATIVE (NEG) Urine Color YELLOW Urine Appearance SLT CLOUDY Urine pH 6.0 (5.0-8.0) Ur Specific [place] >= 1.030 (1.001-1.035) Urine Protein 30 H (NEGATIVE) mg/dL Urine Glucose (UA) NEGATIVE (NEGATIVE) mg/dL Urine Ketones >=80 (NEGATIVE) mg/dL Urine Occult Blood TRACE-INTACT H (NEGATIVE) Urine Nitrite NEGATIVE (NEGATIVE) Urine Bilirubin MODERATE H (NEGATIVE) Urine Ictotest Urine Urobilinogen 0.2 (<2.0) EU/dL Ur Leukocyte Esterase NEGATIVE (NEGATIVE) Urine RBC 0-2 (0-2/HPF) Urine WBC 3-5 (0-5/HPF) Ur Epithelial Cells MODERATE (NONE-FEW) Urine Bacteria 2+ H (NEGATIVE) Urine Mucus MODERATE (NONE-MOD) Urinalysis Comment H. pylori IgG Antibody (NEG) 04/22/19 04/22/19 Range/Units 11:37 11:37 WBC (4.0-11.0) K/uL RBC (4.30-5.90) M/uL Hgb (12.0-16.0) g/dL Hct (36.0-46.0) % MCV (80.0-98.0) fL MCH (27.0-32.0) pg MCHC (31.0-37.0) g/dL RDW Std Deviation (28.0-62.0) fl RDW Coeff of [place] (11.0-15.0) % Plt Count (150-400) K/uL MPV (7.40-12.00) fL Neut % (Auto) (48.0-80.0) % Lymph % (Auto) (16.0-40.0) % [place] % (Auto) (0.0-15.0) % Eos % (Auto) (0.0-7.0) % Baso % (Auto) (0.0-1.5) % Neut # (Auto) (1.4-5.7) K/uL Lymph # (Auto) (0.6-2.4) K/uL [place] # (Auto) (0.0-0.8) K/uL Eos # (Auto) (0.0-0.7) K/uL Baso # (Auto) (0.0-0.1) K/uL Nucleated RBC % /100WBC Nucleated RBCs # K/uL INR Sodium (136-145) mmol/L Potassium (3.5-5.1) mmol/L Chloride (98-107) mmol/L Carbon Dioxide (21.0-32.0) mmol/L BUN (7.0-18.0) mg/dL Creatinine (0.6-1.0) mg/dL Est Cr Clr Drug Dosing mL/min Estimated GFR (MDRD) ml/min Glucose (74-106) mg/dL Calcium (8.5-10.1) mg/dL Phosphorus (2.6-4.7) mg/dL Magnesium (1.8-2.4) mg/dL Total Bilirubin (0.2-1.0) mg/dL AST (15-37) IU/L ALT (14-63) IU/L Alkaline Phosphatase (46-116) U/L Total Protein (6.4-8.2) g/dL Albumin (3.4-5.0) g/dL Globulin (2.6-4.0) g/dL Albumin/Globulin Ratio (0.9-1.6) Lipase (73-393) U/L TSH 3rd Generation 1.59 (0.36-3.74) uIU/mL HCG, Qual (NEG) Urine Color Urine Appearance Urine pH (5.0-8.0) Ur Specific [place] (1.001-1.035) Urine Protein (NEGATIVE) mg/dL Urine Glucose (UA) (NEGATIVE) mg/dL Urine Ketones (NEGATIVE) mg/dL Urine Occult Blood (NEGATIVE) Urine Nitrite (NEGATIVE) Urine Bilirubin (NEGATIVE) Urine Ictotest Urine Urobilinogen (<2.0) EU/dL Ur Leukocyte Esterase (NEGATIVE) Urine RBC (0-2/HPF) Urine WBC (0-5/HPF) Ur Epithelial Cells (NONE-FEW) Urine Bacteria (NEGATIVE) Urine Mucus (NONE-MOD) Urinalysis Comment H. pylori IgG Antibody POSITIVE H (NEG) Result Diagrams: 08/07/18 11:20 08/07/18 11:20 EKG INTERPRETATION EKG Date: 08/07/18 Rhythm: NSR Rate (Beats/Min): 70 [place]: Normal QRS: Normal ST-T: Normal QT: Normal *Q Meaningful Use (ADM) - VTE Risk Assess *Q Each Risk Factor Represents 1 Point: Age 41 - 59 years Total Score 1 Point Risk Factors: 1 Each Risk Factor Represents 2 Points: Malignancy (present or previous) Total Score 2 Point Risk Factors: 2 Each Risk Factor Represents 3 Points: None Total Score 3 Point Risk Factors: 0 Each Risk Factor Represents 5 Points: None Total Score 5 Point Risk Factors: 0 Venous Thromboembolism Risk Factor Score *Q: 3 - Problem List (1) H. pylori infection SNOMED Code(s): 780912137 ICD Code: A04.8 - OTHER SPECIFIED BACTERIAL INTESTINAL INFECTIONS Status: Acute Current Visit: Yes (2) Dehydration SNOMED Code(s): 40597391 ICD Code: E86.0 - DEHYDRATION Status: Acute Current Visit: Yes (3) Odynophagia SNOMED Code(s): 52271939 ICD Code: R13.10 - DYSPHAGIA, UNSPECIFIED Status: Acute Current Visit: Yes (4) UTI (urinary tract infection) SNOMED Code(s): 29373798 ICD Code: N39.0 - URINARY TRACT INFECTION, SITE NOT SPECIFIED Status: Acute Current Visit: Yes Qualifiers: Urinary tract infection type: acute cystitis Hematuria presence: with hematuria Qualified Code(s): N30.01 - Acute cystitis with hematuria (5) Unexplained weight loss SNOMED Code(s): 210572154 ICD Code: R63.4 - ABNORMAL WEIGHT LOSS Status: Acute Current Visit: Yes Problem List Initiated/Reviewed/Updated: Yes Orders Last 24hrs: Active Orders 24 hr Category Date Time Status Patient Status [ADT] Stat ADT 08/07/18 13:24 Active Antiembolic Devices [RC] PER UNIT ROUTINE Care 08/07/18 14:42 Ordered EKG Documentation Completion [RC] STAT Care 08/07/18 11:35 Active Intake and Output [RC] QSHIFT Care 08/07/18 14:41 Ordered May Shower [RC] ASDIRECTED Care 08/07/18 14:41 Ordered Notify Provider Consults [RC] ASDIRECTED Care 08/07/18 14:41 Ordered Oxygen Therapy [RC] PRN Care 08/07/18 14:41 Ordered Up ad Dalia [RC] ASDIRECTED Care 08/07/18 14:41 Ordered VTE/DVT Education [RC] PER UNIT ROUTINE Care 08/07/18 14:41 Ordered Vital Signs [RC] Q4H Care 08/07/18 14:41 Ordered Consult to Physician [CONS] Routine Cons 08/07/18 14:40 Ordered Clear Liquid Diet [DIET] Diet 08/07/18 Dinner Ordered BASIC METABOLIC PANEL,BMP [CHEM] AM Lab 08/08/18 05:11 Ordered CBC WITH AUTO DIFF [HEME] AM Lab 08/08/18 05:11 Ordered CULTURE URINE [RM] Routine Lab 08/07/18 14:49 Ordered MAGNESIUM [CHEM] AM Lab 08/08/18 05:11 Ordered PHOSPHORUS [CHEM] AM Lab 08/08/18 05:11 Ordered Amoxicillin [Amoxil 250 MG/5 ML Susp] Med 08/07/18 15:00 Ordered 1,000 mg PO Q12H Clarithromycin [Biaxin 250 mg/5 ml Susp] Med 08/07/18 15:00 Ordered 500 mg PO Q12H Lactated Ringers [Ringers, Lactated] 1,000 ml Med 08/07/18 14:38 Ordered IV .BOLUS Pantoprazole [ProTONIX IV] 40 mg Med 08/07/18 14:45 Ordered Sodium Chloride 0.9% [Normal Saline] 10 ml IVPUSH Q12H Promethazine [Phenergan] Med 08/07/18 14:41 Ordered 25 mg IM Q6H PRN Sodium Chloride 0.45% with KCl [1/2 NS with 20 mEq KCl] Med 08/07/18 14:30 Active 1,000 ml IV ASDIRECTED cefTRIAXone [Rocephin in Dextrose,Iso-Osm 1 GM/50 ML] 1 Med 08/08/18 13:00 Ordered gm Premix Bag 1 bag IV Q24H Sequential Compression Device [OM.PC] Per Unit Routine Oth 08/07/18 14:42 Ordered Resuscitation Status Routine Resus Stat 08/07/18 14:41 Ordered Medication Orders Amoxicillin (Amoxil 250 Mg/5 Ml Susp) 1,000 mg PO Q12H ESTEVAN Clarithromycin (Biaxin 250 Mg/5 Ml Susp) 500 mg PO Q12H ESTEVAN Potassium Chloride/Sodium Chloride (1/2 Ns With 20 Meq Kcl) 1,000 mls @ 150 mls /hr IV ASDIRECTED ESTEVAN Lactated Ringer's (Ringers, Lactated) 1,000 mls @ 999 mls/hr IV .BOLUS ONE Stop: 08/07/18 15:38 Pantoprazole Sodium 40 mg/ (Sodium Chloride) 10 mls @ 300 mls/hr IVPUSH Q12H ESTEVAN Ceftriaxone Sodium/Dextrose 1 (gm/ Premix) 50 mls @ 100 mls/hr IV Q24H ESTEVAN Promethazine HCl (Phenergan) 25 mg IM Q6H PRN PRN Reason: Nausea Assessment/Plan Comment:: THis 38 year old female admitted with Dehydration, N/V, and H pylori infection 1. Dehydration: Will give another 1 L bolus now. THen start 1/2 NS with 20 KCL at 150 ml/hr x 1 bag then 1/2 NS. Recheck labwork in am. 2. H pylori: Able to use suspension for Clarithromycin 500mg and Amoxicillin 1 g PO BID so will use this. Then Protonix IV BID. Suspected H pylori gastritis. Consulted Dr Navarrete, General surgery for possible EGD or other recommendations due to Odynophagia. He will visit with patient. Will await final recommendations. Consider Upper GI series to evaluate esophageal strictures. 3. N/V: Use above to treat H pylori, Phenergan IM to help with nausea. Keep CL diet VTE prophylaxis: Lovenox. Dispo: 1-2 days pending improvement. <Travis Thompson - Last Filed: 08/07/18 15:51> H&P History of Present Illness - General Admit Problem/Dx: Admission Diagnosis/Problem Admission Diagnosis/Problem Unexplained weight loss - History of Present Illness Initial Comments - Free Text/Narative: I have seen and examined the patient independently of Arabella Luna CNP. I have discussed the case with her. I have reviewed and agreed with the plan of treatment as outlined for this patient by her. Please see orders. Exam - Vital Signs Vital Signs: Last Vital Signs Temp 36.9 C 08/07/18 14:10 Pulse 80 08/07/18 14:10 Resp 16 08/07/18 14:10 BP 109/76 08/07/18 14:10 Pulse Ox 99 08/07/18 14:10 - Patient Data Lab Results Last 24 hrs: Laboratory Results - last 24 hr 08/07/18 08/07/18 08/07/18 Range/Units 11:20 11:20 11:20 WBC 6.17 (4.0-11.0) K/uL RBC 5.07 (4.30-5.90) M/uL Hgb 15.8 (12.0-16.0) g/dL Hct 46.5 H (36.0-46.0) % MCV 91.7 (80.0-98.0) fL MCH 31.2 (27.0-32.0) pg MCHC 34.0 (31.0-37.0) g/dL RDW Std Deviation 44.9 (28.0-62.0) fl RDW Coeff of [place] 13 (11.0-15.0) % Plt Count 206 (150-400) K/uL MPV 10.80 (7.40-12.00) fL Neut % (Auto) 60.8 (48.0-80.0) % Lymph % (Auto) 27.2 (16.0-40.0) % [place] % (Auto) 9.4 (0.0-15.0) % Eos % (Auto) 1.5 (0.0-7.0) % Baso % (Auto) 1.1 (0.0-1.5) % Neut # (Auto) 3.8 (1.4-5.7) K/uL Lymph # (Auto) 1.7 (0.6-2.4) K/uL [place] # (Auto) 0.6 (0.0-0.8) K/uL Eos # (Auto) 0.1 (0.0-0.7) K/uL Baso # (Auto) 0.1 (0.0-0.1) K/uL Nucleated RBC % 0.0 /100WBC Nucleated RBCs # 0 K/uL INR 1.17 Sodium 141 (136-145) mmol/L Potassium 3.3 L (3.5-5.1) mmol/L Chloride 102 (98-107) mmol/L Carbon Dioxide 21.2 (21.0-32.0) mmol/L BUN 12 (7.0-18.0) mg/dL Creatinine 0.9 (0.6-1.0) mg/dL Est Cr Clr Drug Dosing 84.47 mL/min Estimated GFR (MDRD) > 60.0 ml/min Glucose 99 (74-106) mg/dL Calcium 9.3 (8.5-10.1) mg/dL Phosphorus (2.6-4.7) mg/dL Magnesium (1.8-2.4) mg/dL Total Bilirubin 0.6 (0.2-1.0) mg/dL AST 13 L (15-37) IU/L ALT 15 (14-63) IU/L Alkaline Phosphatase 39 L (46-116) U/L Total Protein 7.9 (6.4-8.2) g/dL Albumin 4.8 (3.4-5.0) g/dL Globulin 3.1 (2.6-4.0) g/dL Albumin/Globulin Ratio 1.5 (0.9-1.6) Lipase 85 (73-393) U/L TSH 3rd Generation (0.36-3.74) uIU/mL HCG, Qual (NEG) Urine Color Urine Appearance Urine pH (5.0-8.0) Ur Specific [place] (1.001-1.035) Urine Protein (NEGATIVE) mg/dL Urine Glucose (UA) (NEGATIVE) mg/dL Urine Ketones (NEGATIVE) mg/dL Urine Occult Blood (NEGATIVE) Urine Nitrite (NEGATIVE) Urine Bilirubin (NEGATIVE) Urine Ictotest Urine Urobilinogen (<2.0) EU/dL Ur Leukocyte Esterase (NEGATIVE) Urine RBC (0-2/HPF) Urine WBC (0-5/HPF) Ur Epithelial Cells (NONE-FEW) Urine Bacteria (NEGATIVE) Urine Mucus (NONE-MOD) Urinalysis Comment H. pylori IgG Antibody (NEG) 08/07/18 08/07/18 08/07/18 Range/Units 11:20 11:20 11:28 WBC (4.0-11.0) K/uL RBC (4.30-5.90) M/uL Hgb (12.0-16.0) g/dL Hct (36.0-46.0) % MCV (80.0-98.0) fL MCH (27.0-32.0) pg MCHC (31.0-37.0) g/dL RDW Std Deviation (28.0-62.0) fl RDW Coeff of [place] (11.0-15.0) % Plt Count (150-400) K/uL MPV (7.40-12.00) fL Neut % (Auto) (48.0-80.0) % Lymph % (Auto) (16.0-40.0) % [place] % (Auto) (0.0-15.0) % Eos % (Auto) (0.0-7.0) % Baso % (Auto) (0.0-1.5) % Neut # (Auto) (1.4-5.7) K/uL Lymph # (Auto) (0.6-2.4) K/uL [place] # (Auto) (0.0-0.8) K/uL Eos # (Auto) (0.0-0.7) K/uL Baso # (Auto) (0.0-0.1) K/uL Nucleated RBC % /100WBC Nucleated RBCs # K/uL INR Sodium (136-145) mmol/L Potassium (3.5-5.1) mmol/L Chloride (98-107) mmol/L Carbon Dioxide (21.0-32.0) mmol/L BUN (7.0-18.0) mg/dL Creatinine (0.6-1.0) mg/dL Est Cr Clr Drug Dosing mL/min Estimated GFR (MDRD) ml/min Glucose (74-106) mg/dL Calcium (8.5-10.1) mg/dL Phosphorus 2.5 L (2.6-4.7) mg/dL Magnesium 1.8 (1.8-2.4) mg/dL Total Bilirubin (0.2-1.0) mg/dL AST (15-37) IU/L ALT (14-63) IU/L Alkaline Phosphatase (46-116) U/L Total Protein (6.4-8.2) g/dL Albumin (3.4-5.0) g/dL Globulin (2.6-4.0) g/dL Albumin/Globulin Ratio (0.9-1.6) Lipase (73-393) U/L TSH 3rd Generation (0.36-3.74) uIU/mL HCG, Qual NEGATIVE (NEG) Urine Color YELLOW Urine Appearance SLT CLOUDY Urine pH 6.0 (5.0-8.0) Ur Specific [place] >= 1.030 (1.001-1.035) Urine Protein 30 H (NEGATIVE) mg/dL Urine Glucose (UA) NEGATIVE (NEGATIVE) mg/dL Urine Ketones >=80 (NEGATIVE) mg/dL Urine Occult Blood TRACE-INTACT H (NEGATIVE) Urine Nitrite NEGATIVE (NEGATIVE) Urine Bilirubin MODERATE H (NEGATIVE) Urine Ictotest Urine Urobilinogen 0.2 (<2.0) EU/dL Ur Leukocyte Esterase NEGATIVE (NEGATIVE) Urine RBC 0-2 (0-2/HPF) Urine WBC 3-5 (0-5/HPF) Ur Epithelial Cells MODERATE (NONE-FEW) Urine Bacteria 2+ H (NEGATIVE) Urine Mucus MODERATE (NONE-MOD) Urinalysis Comment H. pylori IgG Antibody (NEG) 08/07/18 08/07/18 Range/Units 11:37 11:37 WBC (4.0-11.0) K/uL RBC (4.30-5.90) M/uL Hgb (12.0-16.0) g/dL Hct (36.0-46.0) % MCV (80.0-98.0) fL MCH (27.0-32.0) pg MCHC (31.0-37.0) g/dL RDW Std Deviation (28.0-62.0) fl RDW Coeff of [place] (11.0-15.0) % Plt Count (150-400) K/uL MPV (7.40-12.00) fL Neut % (Auto) (48.0-80.0) % Lymph % (Auto) (16.0-40.0) % [place] % (Auto) (0.0-15.0) % Eos % (Auto) (0.0-7.0) % Baso % (Auto) (0.0-1.5) % Neut # (Auto) (1.4-5.7) K/uL Lymph # (Auto) (0.6-2.4) K/uL [place] # (Auto) (0.0-0.8) K/uL Eos # (Auto) (0.0-0.7) K/uL Baso # (Auto) (0.0-0.1) K/uL Nucleated RBC % /100WBC Nucleated RBCs # K/uL INR Sodium (136-145) mmol/L Potassium (3.5-5.1) mmol/L Chloride (98-107) mmol/L Carbon Dioxide (21.0-32.0) mmol/L BUN (7.0-18.0) mg/dL Creatinine (0.6-1.0) mg/dL Est Cr Clr Drug Dosing mL/min Estimated GFR (MDRD) ml/min Glucose (74-106) mg/dL Calcium (8.5-10.1) mg/dL Phosphorus (2.6-4.7) mg/dL Magnesium (1.8-2.4) mg/dL Total Bilirubin (0.2-1.0) mg/dL AST (15-37) IU/L ALT (14-63) IU/L Alkaline Phosphatase (46-116) U/L Total Protein (6.4-8.2) g/dL Albumin (3.4-5.0) g/dL Globulin (2.6-4.0) g/dL Albumin/Globulin Ratio (0.9-1.6) Lipase (73-393) U/L TSH 3rd Generation 1.59 (0.36-3.74) uIU/mL HCG, Qual (NEG) Urine Color Urine Appearance Urine pH (5.0-8.0) Ur Specific [place] (1.001-1.035) Urine Protein (NEGATIVE) mg/dL Urine Glucose (UA) (NEGATIVE) mg/dL Urine Ketones (NEGATIVE) mg/dL Urine Occult Blood (NEGATIVE) Urine Nitrite (NEGATIVE) Urine Bilirubin (NEGATIVE) Urine Ictotest Urine Urobilinogen (<2.0) EU/dL Ur Leukocyte Esterase (NEGATIVE) Urine RBC (0-2/HPF) Urine WBC (0-5/HPF) Ur Epithelial Cells (NONE-FEW) Urine Bacteria (NEGATIVE) Urine Mucus (NONE-MOD) Urinalysis Comment H. pylori IgG Antibody POSITIVE H (NEG) Result Diagrams: 08/07/18 11:20 08/07/18 11:20 Orders Last 24hrs: Active Orders 24 hr Category Date Time Status Patient Status [ADT] Stat ADT 08/07/18 13:24 Active Antiembolic Devices [RC] PER UNIT ROUTINE Care 08/07/18 14:42 Active EKG Documentation Completion [RC] STAT Care 08/07/18 11:35 Active Intake and Output [RC] QSHIFT Care 08/07/18 14:41 Active May Shower [RC] ASDIRECTED Care 08/07/18 14:41 Active Notify Provider Consults [RC] ASDIRECTED Care 08/07/18 14:41 Active Oxygen Therapy [RC] PRN Care 08/07/18 14:41 Active Up ad [place] [RC] ASDIRECTED Care 08/07/18 14:41 Active VTE/DVT Education [RC] PER UNIT ROUTINE Care 08/07/18 14:41 Active Vital Signs [RC] Q4H Care 08/07/18 14:41 Active Consult to Physician [CONS] Routine Cons 08/07/18 14:40 Active Clear Liquid Diet [DIET] Diet 08/07/18 Dinner Active BASIC METABOLIC PANEL,BMP [CHEM] AM Lab 08/08/18 05:11 Ordered CBC WITH AUTO DIFF [HEME] AM Lab 08/08/18 05:11 Ordered CULTURE URINE [RM] Routine Lab 08/07/18 14:49 Ordered MAGNESIUM [CHEM] AM Lab 08/08/18 05:11 Ordered PHOSPHORUS [CHEM] AM Lab 08/08/18 05:11 Ordered Amoxicillin [Amoxil 250 MG/5 ML Susp] Med 08/07/18 15:00 Active 1,000 mg PO Q12H Clarithromycin [Biaxin 250 mg/5 ml Susp] Med 08/07/18 15:00 Active 500 mg PO Q12H Ketorolac [Toradol] Med 08/07/18 15:03 Active 15 mg IVPUSH Q6H PRN Pantoprazole [ProTONIX IV] 40 mg Med 08/07/18 14:45 Active Sodium Chloride 0.9% [Normal Saline] 10 ml IVPUSH Q12H Promethazine [Phenergan] Med 08/07/18 14:41 Active 25 mg IM Q6H PRN Sodium Chloride 0.45% 1,000 ml Med 08/07/18 23:45 Active IV ASDIRECTED Sodium Chloride 0.45% with KCl [1/2 NS with 20 mEq KCl] Med 08/07/18 14:30 Active 1,000 ml IV ASDIRECTED cefTRIAXone [Rocephin in Dextrose,Iso-Osm 1 GM/50 ML] 1 Med 08/08/18 13:00 Active gm Premix Bag 1 bag IV Q24H Sequential Compression Device [OM.PC] Per Unit Routine Oth 08/07/18 14:42 Ordered Resuscitation Status Routine Resus Stat 08/07/18 14:41 Ordered Medication Orders Amoxicillin (Amoxil 250 Mg/5 Ml Susp) 1,000 mg PO Q12H [facility] Last Admin: 08/07/18 15:45 Dose: Not Given Clarithromycin (Biaxin 250 Mg/5 Ml Susp) 500 mg PO Q12H [facility] Last Admin: 08/07/18 15:40 Dose: Not Given Potassium Chloride/Sodium Chloride (1/2 Ns With 20 Meq Kcl) 1,000 mls @ 150 mls /hr IV ASDIRECTED ESTEVAN Stop: 08/07/18 21:09 Pantoprazole Sodium 40 mg/ (Sodium Chloride) 10 mls @ 300 mls/hr IVPUSH Q12H [facility] Last Admin: 08/07/18 15:14 Dose: 300 mls/hr Ceftriaxone Sodium/Dextrose 1 (gm/ Premix) 50 mls @ 100 mls/hr IV Q24H [facility] Sodium Chloride (Sodium Chloride 0.45%) 1,000 mls @ 150 mls/hr IV ASDIRECTED ESTEVAN Ketorolac Tromethamine (Toradol) 15 mg IVPUSH Q6H PRN PRN Reason: Pain Stop: 08/12/18 15:03 Last Admin: 08/07/18 15:38 Dose: 15 mg Promethazine HCl (Phenergan) 25 mg IM Q6H PRN PRN Reason: Nausea
[2018-08-07] MEDS: Pantoprazole 40 MG in Sodium Chloride 0.9% 10 ML IVPUSH SCH (15:14)
[2018-08-07] MEDS: Ketorolac 15 MG/ML SDV IVPUSH PRN ×2 (15:38→23:21)
[2018-08-07] MEDS: CLARITHROMYCIN 250 MG/5 ML PO SCH ×2 (15:40→18:26)
[2018-08-07] MEDS: Amoxicillin 250 MG/5 ML Susp 150 ML Bottle PO SCH ×2 (15:45→18:27)
--- NOTE | 2018-08-07 16:59 | PCM.CONS ---
H&P History of Present Illness - General Date of Service: 08/07/18 Admit Problem/Dx: Admission Diagnosis/Problem Admission Diagnosis/Problem Unexplained weight loss Source of Information: Patient History Limitations: Reports: No Limitations - History of Present Illness Initial Comments - Free Text/Narative: Patient is a 38-year-old female with a 3 to four-month history of unintentional weight loss. During this time she has had persistent nausea and vomiting. She does note postprandial abdominal pain. No sensation of early satiety. It is to the point that she can barely get liquids down. No change in bowel habits. Duration of Symptoms: Reports: Week(s):, Chronic, Recurring Location: Reports: Abdomen Quality: Reports: Pressure Severity: Moderate Improves with: Reports: None Worsens with: Reports: Eating Context: Reports: Sick Contact Associated Symptoms: Reports: Nausea/Vomiting, Weakness. Denies: Diaphoresis, Fever/Chills, Shortness of Breath, Syncope back Pain Score (Numeric/FACES): 2 - Related Data Allergies/Adverse Reactions: Allergies Allergy/AdvReac Type Severity Reaction Status Date / Time bupropion [From Wellbutrin] Allergy Hives Verified 08/07/18 11:12 theophylline Allergy Other Verified 08/07/18 11:12 Home Medications: Home Meds Promethazine [Phenergan] 25 mg PO TID PRN 08/07/18 [History] Past Medical History HEENT History: Reports: None Cardiovascular History: Reports: None. Denies: Afib, Blood Clots/VTE/DVT, CAD, [place] Respiratory History: Reports: Asthma. Denies: COPD Gastrointestinal History: Reports: Helicobacter Pylori, Hiatal Hernia Other Gastrointestinal History: 3 to four-month history of nausea, vomiting and unintentional weight loss Genitourinary History: Reports: None. Denies: Chronic Renal Insuffiency [employer] ANALYST History: Reports: Endometrial Ablation, Musculoskeletal History: Reports: None Neurological History: Reports: None. Denies: CVA, TIA Psychiatric History: Reports: None Endocrine/Metabolic History: Reports: None. Denies: Diabetes, Type II, Obesity/ BMI 30+ Hematologic History: Reports: None Oncologic (Cancer) History: Reports: Breast (double mastectomy with reconstruction) Dermatologic History: Reports: Eczema - Infectious Disease History Infectious Disease History: Reports: Chicken Pox - Past Surgical History GI Surgical History: Reports: Appendectomy, Colonoscopy, EGD Female Surgical History: Reports: Breast Biopsy, Breast Implant, Breast Reconstruction, Section, Endometrial Ablation, Mastectomy, Tubal Ligation Oncologic Surgical History: Reports: Biopsy of Breast, Lumpectomy, Mastectomy Social & Family History - Family History Family Medical History: Noncontributory - Tobacco Use Smoking Status *Q: Current Every Day Smoker Years of Tobacco use: 5 Packs/Tins Daily: 0.5 - Caffeine Use Caffeine Use: Reports: Coffee - Recreational Drug Use Recreational Drug Use: Yes Recreational Drug Type: Reports: Marijuana/Hashish Recreational Drug Use Frequency: Rarely - Living Situation & Occupation Occupation: Employed H&P Review of Systems - Review of Systems: Review Of Systems: See Below General: Reports: Weakness, Decreased Appetite, Weight Loss. Denies: Fever, Chills, Night Sweats, Diaphoresis HEENT: Reports: No Symptoms Pulmonary: Denies: Shortness of Breath, Wheezing, Pleuritic Chest Pain Cardiovascular: Denies: Chest Pain, Palpitations, Dyspnea on Exertion Gastrointestinal: Reports: Constipation, Decreased Appetite, Flatus, Nausea, Vomiting. Denies: Abdominal Pain, Anorexia, Black Stool, Bloody Stool, Diarrhea , Distension, Hematochezia, Melena Genitourinary: Denies: Dysuria, Frequency, Burning, Pain Musculoskeletal: Reports: No Symptoms Skin: Denies: Cyanosis, Jaundice, Mottled, Pallor, Diaphoresis Psychiatric: Denies: Confusion, Depression, Anxiety Neurological: Reports: No Symptoms Hematologic/Lymphatic: Denies: Anemia, Easy Bleeding, Easy Bruising Immunologic: Reports: No Symptoms Exam - Exam Exam: See Below - Vital Signs Vital Signs: Last Vital Signs Temp 98.1 F 08/07/18 16:00 Pulse 55 L 08/07/18 16:00 Resp 14 08/07/18 16:00 BP 101/64 08/07/18 16:00 Pulse Ox 98 08/07/18 16:00 Weight: 141 lb 15.643 oz - Exam Quality Assessment: DVT Prophylaxis. No: Central Line/PICC, Urinary Catheter General: Alert, Oriented, Cooperative, Mild Distress, Sedated HEENT: Conjunctiva Clear, Pupils Equal, Pupils Reactive. No: Scleral Icterus Neck: Supple, Trachea Midline Lungs: Clear to Auscultation, Normal Respiratory Effort Cardiovascular: Regular Rate, Regular Rhythm, Normal S1, Normal S2. No: Tachycardia GI/Abdominal Exam: Normal Bowel Sounds, Soft, Non-Tender (Female) Exam: Deferred Rectal (Female) Exam: Deferred Back Exam: Normal Inspection Extremities: Normal Inspection, Normal Range of Motion Peripheral Pulses: 4+: Posterior Tibial (L), Posterior Tibial (R), Dorsalis Pedis (L), Dorsalis Pedis (R) Skin: Warm, Dry, Intact Neurological: Cranial Nerves Intact Neuro Extensive - Mental Status: Alert, Oriented x3, Normal Mood/Affect Psychiatric: Alert, Normal Affect, Normal Mood - Patient Data Lab Results Last 24 hrs: Laboratory Results - last 24 hr 08/07/18 08/07/18 08/07/18 Range/Units 11:20 11:20 11:20 WBC 6.17 (4.0-11.0) K/uL RBC 5.07 (4.30-5.90) M/uL Hgb 15.8 (12.0-16.0) g/dL Hct 46.5 H (36.0-46.0) % MCV 91.7 (80.0-98.0) fL MCH 31.2 (27.0-32.0) pg MCHC 34.0 (31.0-37.0) g/dL RDW Std Deviation 44.9 (28.0-62.0) fl RDW Coeff of [place] 13 (11.0-15.0) % Plt Count 206 (150-400) K/uL MPV 10.80 (7.40-12.00) fL Neut % (Auto) 60.8 (48.0-80.0) % Lymph % (Auto) 27.2 (16.0-40.0) % [place] % (Auto) 9.4 (0.0-15.0) % Eos % (Auto) 1.5 (0.0-7.0) % Baso % (Auto) 1.1 (0.0-1.5) % Neut # (Auto) 3.8 (1.4-5.7) K/uL Lymph # (Auto) 1.7 (0.6-2.4) K/uL [place] # (Auto) 0.6 (0.0-0.8) K/uL Eos # (Auto) 0.1 (0.0-0.7) K/uL Baso # (Auto) 0.1 (0.0-0.1) K/uL Nucleated RBC % 0.0 /100WBC Nucleated RBCs # 0 K/uL INR 1.17 Sodium 141 (136-145) mmol/L Potassium 3.3 L (3.5-5.1) mmol/L Chloride 102 (98-107) mmol/L Carbon Dioxide 21.2 (21.0-32.0) mmol/L BUN 12 (7.0-18.0) mg/dL Creatinine 0.9 (0.6-1.0) mg/dL Est Cr Clr Drug Dosing 84.47 mL/min Estimated GFR (MDRD) > 60.0 ml/min Glucose 99 (74-106) mg/dL Calcium 9.3 (8.5-10.1) mg/dL Phosphorus (2.6-4.7) mg/dL Magnesium (1.8-2.4) mg/dL Total Bilirubin 0.6 (0.2-1.0) mg/dL AST 13 L (15-37) IU/L ALT 15 (14-63) IU/L Alkaline Phosphatase 39 L (46-116) U/L Total Protein 7.9 (6.4-8.2) g/dL Albumin 4.8 (3.4-5.0) g/dL Globulin 3.1 (2.6-4.0) g/dL Albumin/Globulin Ratio 1.5 (0.9-1.6) Lipase 85 (73-393) U/L TSH 3rd Generation (0.36-3.74) uIU/mL HCG, Qual (NEG) Urine Color Urine Appearance Urine pH (5.0-8.0) Ur Specific [place] (1.001-1.035) Urine Protein (NEGATIVE) mg/dL Urine Glucose (UA) (NEGATIVE) mg/dL Urine Ketones (NEGATIVE) mg/dL Urine Occult Blood (NEGATIVE) Urine Nitrite (NEGATIVE) Urine Bilirubin (NEGATIVE) Urine Ictotest Urine Urobilinogen (<2.0) EU/dL Ur Leukocyte Esterase (NEGATIVE) Urine RBC (0-2/HPF) Urine WBC (0-5/HPF) Ur Epithelial Cells (NONE-FEW) Urine Bacteria (NEGATIVE) Urine Mucus (NONE-MOD) Urinalysis Comment H. pylori IgG Antibody (NEG) 08/07/18 08/07/1819 Range/Units 11:20 11:20 11:28 WBC (4.0-11.0) K/uL RBC (4.30-5.90) M/uL Hgb (12.0-16.0) g/dL Hct (36.0-46.0) % MCV (80.0-98.0) fL MCH (27.0-32.0) pg MCHC (31.0-37.0) g/dL RDW Std Deviation (28.0-62.0) fl RDW Coeff of [place] (11.0-15.0) % Plt Count (150-400) K/uL MPV (7.40-12.00) fL Neut % (Auto) (48.0-80.0) % Lymph % (Auto) (16.0-40.0) % [place] % (Auto) (0.0-15.0) % Eos % (Auto) (0.0-7.0) % Baso % (Auto) (0.0-1.5) % Neut # (Auto) (1.4-5.7) K/uL Lymph # (Auto) (0.6-2.4) K/uL [place] # (Auto) (0.0-0.8) K/uL Eos # (Auto) (0.0-0.7) K/uL Baso # (Auto) (0.0-0.1) K/uL Nucleated RBC % /100WBC Nucleated RBCs # K/uL INR Sodium (136-145) mmol/L Potassium (3.5-5.1) mmol/L Chloride (98-107) mmol/L Carbon Dioxide (21.0-32.0) mmol/L BUN (7.0-18.0) mg/dL Creatinine (0.6-1.0) mg/dL Est Cr Clr Drug Dosing mL/min Estimated GFR (MDRD) ml/min Glucose (74-106) mg/dL Calcium (8.5-10.1) mg/dL Phosphorus 2.5 L (2.6-4.7) mg/dL Magnesium 1.8 (1.8-2.4) mg/dL Total Bilirubin (0.2-1.0) mg/dL AST (15-37) IU/L ALT (14-63) IU/L Alkaline Phosphatase (46-116) U/L Total Protein (6.4-8.2) g/dL Albumin (3.4-5.0) g/dL Globulin (2.6-4.0) g/dL Albumin/Globulin Ratio (0.9-1.6) Lipase (73-393) U/L TSH 3rd Generation (0.36-3.74) uIU/mL HCG, Qual NEGATIVE (NEG) Urine Color YELLOW Urine Appearance SLT CLOUDY Urine pH 6.0 (5.0-8.0) Ur Specific [place] >= 1.030 (1.001-1.035) Urine Protein 30 H (NEGATIVE) mg/dL Urine Glucose (UA) NEGATIVE (NEGATIVE) mg/dL Urine Ketones >=80 (NEGATIVE) mg/dL Urine Occult Blood TRACE-INTACT H (NEGATIVE) Urine Nitrite NEGATIVE (NEGATIVE) Urine Bilirubin MODERATE H (NEGATIVE) Urine Ictotest Urine Urobilinogen 0.2 (<2.0) EU/dL Ur Leukocyte Esterase NEGATIVE (NEGATIVE) Urine RBC 0-2 (0-2/HPF) Urine WBC 3-5 (0-5/HPF) Ur Epithelial Cells MODERATE (NONE-FEW) Urine Bacteria 2+ H (NEGATIVE) Urine Mucus MODERATE (NONE-MOD) Urinalysis Comment H. pylori IgG Antibody (NEG) 08/07/18 08/07/18 Range/Units 11:37 11:37 WBC (4.0-11.0) K/uL RBC (4.30-5.90) M/uL Hgb (12.0-16.0) g/dL Hct (36.0-46.0) % MCV (80.0-98.0) fL MCH (27.0-32.0) pg MCHC (31.0-37.0) g/dL RDW Std Deviation (28.0-62.0) fl RDW Coeff of [place] (11.0-15.0) % Plt Count (150-400) K/uL MPV (7.40-12.00) fL Neut % (Auto) (48.0-80.0) % Lymph % (Auto) (16.0-40.0) % [place] % (Auto) (0.0-15.0) % Eos % (Auto) (0.0-7.0) % Baso % (Auto) (0.0-1.5) % Neut # (Auto) (1.4-5.7) K/uL Lymph # (Auto) (0.6-2.4) K/uL [place] # (Auto) (0.0-0.8) K/uL Eos # (Auto) (0.0-0.7) K/uL Baso # (Auto) (0.0-0.1) K/uL Nucleated RBC % /100WBC Nucleated RBCs # K/uL INR Sodium (136-145) mmol/L Potassium (3.5-5.1) mmol/L Chloride (98-107) mmol/L Carbon Dioxide (21.0-32.0) mmol/L BUN (7.0-18.0) mg/dL Creatinine (0.6-1.0) mg/dL Est Cr Clr Drug Dosing mL/min Estimated GFR (MDRD) ml/min Glucose (74-106) mg/dL Calcium (8.5-10.1) mg/dL Phosphorus (2.6-4.7) mg/dL Magnesium (1.8-2.4) mg/dL Total Bilirubin (0.2-1.0) mg/dL AST (15-37) IU/L ALT (14-63) IU/L Alkaline Phosphatase (46-116) U/L Total Protein (6.4-8.2) g/dL Albumin (3.4-5.0) g/dL Globulin (2.6-4.0) g/dL Albumin/Globulin Ratio (0.9-1.6) Lipase (73-393) U/L TSH 3rd Generation 1.59 (0.36-3.74) uIU/mL HCG, Qual (NEG) Urine Color Urine Appearance Urine pH (5.0-8.0) Ur Specific [place] (1.001-1.035) Urine Protein (NEGATIVE) mg/dL Urine Glucose (UA) (NEGATIVE) mg/dL Urine Ketones (NEGATIVE) mg/dL Urine Occult Blood (NEGATIVE) Urine Nitrite (NEGATIVE) Urine Bilirubin (NEGATIVE) Urine Ictotest Urine Urobilinogen (<2.0) EU/dL Ur Leukocyte Esterase (NEGATIVE) Urine RBC (0-2/HPF) Urine WBC (0-5/HPF) Ur Epithelial Cells (NONE-FEW) Urine Bacteria (NEGATIVE) Urine Mucus (NONE-MOD) Urinalysis Comment H. pylori IgG Antibody POSITIVE H (NEG) Result Diagrams: 08/07/18 11:20 08/07/18 11:20 Consult PN Assessment/Plan Procedures: Procedures ASSAY OF AMYLASE (07/30/18) ASSAY OF LACTIC ACID (07/30/18) ASSAY OF LIPASE (07/30/18) ASSAY OF MAGNESIUM (07/30/18) ASSAY THYROID STIM HORMONE (07/30/18) COMPLETE CBC W/AUTO DIFF WBC (07/30/18) COMPREHEN METABOLIC PANEL (07/30/18) CT ABD & PELV W/CONTRAST (07/30/18) EMERGENCY DEPT VISIT (07/30/18) HYDRATE IV INFUSION ADD-ON (07/30/18) ROUTINE VENIPUNCTURE (07/30/18) THER/PROPH/DIAG INJ IV PUSH (07/30/18) TISSUE EXAM BY PATHOLOGIST (07/23/13) TX/PRO/DX INJ NEW DRUG ADDON (07/30/18) URINALYSIS AUTO W/SCOPE (07/30/18) X-RAY EXAM CHEST 2 VIEWS (07/30/18) (1) Nausea and vomiting SNOMED Code(s): 30923575 Code(s): R11.2 - NAUSEA WITH VOMITING, UNSPECIFIED Priority: High Current Visit: Yes Qualifiers: Vomiting type: unspecified (2) Dysphagia SNOMED Code(s): 55155842, 843002967 Code(s): R13.10 - DYSPHAGIA, UNSPECIFIED Priority: Medium Current Visit: Yes Qualifiers: Dysphagia type: pharyngoesophageal phase Qualified Code(s): R13.14 - Dysphagia, pharyngoesophageal phase (3) Dehydration SNOMED Code(s): 66339053 Code(s): E86.0 - DEHYDRATION Priority: High Current Visit: Yes (4) H. pylori infection SNOMED Code(s): 239152030 Code(s): A04.8 - OTHER SPECIFIED BACTERIAL INTESTINAL INFECTIONS Priority: High Current Visit: Yes (5) Odynophagia SNOMED Code(s): 39726802 Code(s): R13.10 - DYSPHAGIA, UNSPECIFIED Current Visit: Yes (6) Unexplained weight loss SNOMED Code(s): 185045390 Code(s): R63.4 - ABNORMAL WEIGHT LOSS Priority: High Current Visit: Yes Problem List Initiated/Reviewed/Updated: Yes Plan: Recommend proceeding with an esophagram/UGI first to look for a stricture in the esophagus or a gastric outlet obstruction. Recommend aggressive treatment of her H pylori infection. Rehydration as you are doing. May consider EGD after UGI results are known and H Pylori has been treated. At this point I am concerned about an esophageal or gastric obstruction and would like to assess radiologically first.
[2018-08-07] MEDS: Promethazine 25 MG/ML SDV IM PRN ×2 (17:01→23:21)
[2018-08-07] MEDS ORDERED: Potassium Chloride 20 MEQ Tab.ER PO ONE (17:17)
[2018-08-07] MEDS: Sodium Chloride 0.45% 1,000 ML IV SCH (23:23)
[2018-08-08] MEDS: Pantoprazole 40 MG in Sodium Chloride 0.9% 10 ML IVPUSH SCH ×2 (04:01→16:07)
[2018-08-08] MEDS: CLARITHROMYCIN 250 MG/5 ML PO SCH ×2 (04:02→16:07)
[2018-08-08] MEDS: Amoxicillin 250 MG/5 ML Susp 150 ML Bottle PO SCH ×2 (04:03→16:07)
[2018-08-08] MEDS: Promethazine 25 MG/ML SDV IM PRN ×2 (05:31→12:15)
[2018-08-08] MEDS: Ketorolac 15 MG/ML SDV IVPUSH PRN ×2 (05:31→12:14)
[2018-08-08] MEDS: Sodium Chloride 0.45% 1,000 ML IV SCH (05:35)
[2018-08-08 06:40] LABS: CHLORIDE,CL 108 mmol/L (98-107); SODIUM,NA 141 mmol/L (136-145)
[2018-08-08] MEDS ORDERED: Magnesium Sulfate/Water 2 GM in Premix Bag 1 BAG IV ONE (08:23)
--- NOTE | 2018-08-08 11:57 | PCM.PN ---
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 No chest pain. Report being able to swallow better lying on R side. Still not eating much. Functional Status: Reports: Pain Controlled, Ambulating, Urinating. Denies: Tolerating Diet - Review of Systems General: Reports: No Symptoms. Denies: Fever, Weakness, Fatigue HEENT: Reports: Other (trouble swallowing) Pulmonary: Reports: No Symptoms. Denies: Shortness of Breath Cardiovascular: Reports: No Symptoms. Denies: Chest Pain Gastrointestinal: Denies: Abdominal Pain, Nausea, Vomiting Genitourinary: Reports: Flank Pain. Denies: Dysuria, Frequency Musculoskeletal: Reports: No Symptoms Skin: Reports: No Symptoms Neurological: Reports: No Symptoms Psychiatric: Reports: No Symptoms - Patient Data Vitals - Most Recent: Last Vital Signs Temp 97.2 F 08/08/18 11:43 Pulse 64 08/08/18 11:43 Resp 22 H 08/08/18 11:43 BP 97/68 08/08/18 11:43 Pulse Ox 100 08/08/18 11:43 Weight - Most Recent: 65.499 kg I&O - Last 24 Hours: Intake & Output 08/07/18 08/08/18 08/08/18 22:59 06:59 14:59 Intake Total 1310 1670 50 Output Total 0 400 Balance 1310 1270 50 Lab Results Last 24 Hours: Laboratory Results - last 24 hr 08/07/18 08/07/18 08/07/18 Range/Units 11:20 11:20 11:20 WBC (4.0-11.0) K/uL RBC (4.30-5.90) M/uL Hgb (12.0-16.0) g/dL Hct (36.0-46.0) % MCV (80.0-98.0) fL MCH (27.0-32.0) pg MCHC (31.0-37.0) g/dL RDW Std Deviation (28.0-62.0) fl RDW Coeff of [place] (11.0-15.0) % Plt Count (150-400) K/uL MPV (7.40-12.00) fL Neut % (Auto) (48.0-80.0) % Lymph % (Auto) (16.0-40.0) % Desha % (Auto) (0.0-15.0) % Eos % (Auto) (0.0-7.0) % Baso % (Auto) (0.0-1.5) % Neut # (Auto) (1.4-5.7) K/uL Lymph # (Auto) (0.6-2.4) K/uL Desha # (Auto) (0.0-0.8) K/uL Eos # (Auto) (0.0-0.7) K/uL Baso # (Auto) (0.0-0.1) K/uL Nucleated RBC % /100WBC Nucleated RBCs # K/uL INR 1.17 Sodium 141 (136-145) mmol/L Potassium 3.3 L (3.5-5.1) mmol/L Chloride 102 (98-107) mmol/L Carbon Dioxide 21.2 (21.0-32.0) mmol/L BUN 12 (7.0-18.0) mg/dL Creatinine 0.9 (0.6-1.0) mg/dL Est Cr Clr Drug Dosing 84.47 mL/min Estimated GFR (MDRD) > 60.0 ml/min Glucose 99 (74-106) mg/dL Calcium 9.3 (8.5-10.1) mg/dL Phosphorus (2.6-4.7) mg/dL Magnesium (1.8-2.4) mg/dL Total Bilirubin 0.6 (0.2-1.0) mg/dL AST 13 L (15-37) IU/L ALT 15 (14-63) IU/L Alkaline Phosphatase 39 L (46-116) U/L Total Protein 7.9 (6.4-8.2) g/dL Albumin 4.8 (3.4-5.0) g/dL Globulin 3.1 (2.6-4.0) g/dL Albumin/Globulin Ratio 1.5 (0.9-1.6) Lipase 85 (73-393) U/L TSH 3rd Generation (0.36-3.74) uIU/mL HCG, Qual NEGATIVE (NEG) Urine Color Urine Appearance Urine pH (5.0-8.0) Ur Specific [place] (1.001-1.035) Urine Protein (NEGATIVE) mg/dL Urine Glucose (UA) (NEGATIVE) mg/dL Urine Ketones (NEGATIVE) mg/dL Urine Occult Blood (NEGATIVE) Urine Nitrite (NEGATIVE) Urine Bilirubin (NEGATIVE) Urine Ictotest Urine Urobilinogen (<2.0) EU/dL Ur Leukocyte Esterase (NEGATIVE) Urine RBC (0-2/HPF) Urine WBC (0-5/HPF) Ur Epithelial Cells (NONE-FEW) Urine Bacteria (NEGATIVE) Urine Mucus (NONE-MOD) Urinalysis Comment H. pylori IgG Antibody (NEG) 08/07/18 08/07/18 08/07/18 Range/Units 11:20 11:28 11:37 WBC (4.0-11.0) K/uL RBC (4.30-5.90) M/uL Hgb (12.0-16.0) g/dL Hct (36.0-46.0) % MCV (80.0-98.0) fL MCH (27.0-32.0) pg MCHC (31.0-37.0) g/dL RDW Std Deviation (28.0-62.0) fl RDW Coeff of [place] (11.0-15.0) % Plt Count (150-400) K/uL MPV (7.40-12.00) fL Neut % (Auto) (48.0-80.0) % Lymph % (Auto) (16.0-40.0) % Desha % (Auto) (0.0-15.0) % Eos % (Auto) (0.0-7.0) % Baso % (Auto) (0.0-1.5) % Neut # (Auto) (1.4-5.7) K/uL Lymph # (Auto) (0.6-2.4) K/uL Desha # (Auto) (0.0-0.8) K/uL Eos # (Auto) (0.0-0.7) K/uL Baso # (Auto) (0.0-0.1) K/uL Nucleated RBC % /100WBC Nucleated RBCs # K/uL INR Sodium (136-145) mmol/L Potassium (3.5-5.1) mmol/L Chloride (98-107) mmol/L Carbon Dioxide (21.0-32.0) mmol/L BUN (7.0-18.0) mg/dL Creatinine (0.6-1.0) mg/dL Est Cr Clr Drug Dosing mL/min Estimated GFR (MDRD) ml/min Glucose (74-106) mg/dL Calcium (8.5-10.1) mg/dL Phosphorus 2.5 L (2.6-4.7) mg/dL Magnesium 1.8 (1.8-2.4) mg/dL Total Bilirubin (0.2-1.0) mg/dL AST (15-37) IU/L ALT (14-63) IU/L Alkaline Phosphatase (46-116) U/L Total Protein (6.4-8.2) g/dL Albumin (3.4-5.0) g/dL Globulin (2.6-4.0) g/dL Albumin/Globulin Ratio (0.9-1.6) Lipase (73-393) U/L TSH 3rd Generation 1.59 (0.36-3.74) uIU/mL HCG, Qual (NEG) Urine Color YELLOW Urine Appearance SLT CLOUDY Urine pH 6.0 (5.0-8.0) Ur Specific [place] >= 1.030 (1.001-1.035) Urine Protein 30 H (NEGATIVE) mg/dL Urine Glucose (UA) NEGATIVE (NEGATIVE) mg/dL Urine Ketones >=80 (NEGATIVE) mg/dL Urine Occult Blood TRACE-INTACT H (NEGATIVE) Urine Nitrite NEGATIVE (NEGATIVE) Urine Bilirubin MODERATE H (NEGATIVE) Urine Ictotest Urine Urobilinogen 0.2 (<2.0) EU/dL Ur Leukocyte Esterase NEGATIVE (NEGATIVE) Urine RBC 0-2 (0-2/HPF) Urine WBC 3-5 (0-5/HPF) Ur Epithelial Cells MODERATE (NONE-FEW) Urine Bacteria 2+ H (NEGATIVE) Urine Mucus MODERATE (NONE-MOD) Urinalysis Comment H. pylori IgG Antibody (NEG) 08/07/18 08/08/18 08/08/18 Range/Units 11:37 05:45 05:45 WBC 4.25 (4.0-11.0) K/uL RBC 4.11 L (4.30-5.90) M/uL Hgb 12.5 (12.0-16.0) g/dL Hct 38.2 (36.0-46.0) % MCV 92.9 (80.0-98.0) fL MCH 30.4 (27.0-32.0) pg MCHC 32.7 (31.0-37.0) g/dL RDW Std Deviation 46.6 (28.0-62.0) fl RDW Coeff of [place] 14 (11.0-15.0) % Plt Count 159 (150-400) K/uL MPV 10.60 (7.40-12.00) fL Neut % (Auto) 49.7 (48.0-80.0) % Lymph % (Auto) 35.8 (16.0-40.0) % Desha % (Auto) 8.9 (0.0-15.0) % Eos % (Auto) 4.2 (0.0-7.0) % Baso % (Auto) 1.4 (0.0-1.5) % Neut # (Auto) 2.1 (1.4-5.7) K/uL Lymph # (Auto) 1.5 (0.6-2.4) K/uL Desha # (Auto) 0.4 (0.0-0.8) K/uL Eos # (Auto) 0.2 (0.0-0.7) K/uL Baso # (Auto) 0.1 (0.0-0.1) K/uL Nucleated RBC % 0.0 /100WBC Nucleated RBCs # 0 K/uL INR Sodium 141 (136-145) mmol/L Potassium 3.6 (3.5-5.1) mmol/L Chloride 108 H (98-107) mmol/L Carbon Dioxide 24.9 (21.0-32.0) mmol/L BUN 9 (7.0-18.0) mg/dL Creatinine 0.7 (0.6-1.0) mg/dL Est Cr Clr Drug Dosing 110.46 mL/min Estimated GFR (MDRD) > 60.0 ml/min Glucose 97 (74-106) mg/dL Calcium 8.1 L (8.5-10.1) mg/dL Phosphorus 2.5 L (2.6-4.7) mg/dL Magnesium 1.6 L (1.8-2.4) mg/dL Total Bilirubin (0.2-1.0) mg/dL AST (15-37) IU/L ALT (14-63) IU/L Alkaline Phosphatase (46-116) U/L Total Protein (6.4-8.2) g/dL Albumin (3.4-5.0) g/dL Globulin (2.6-4.0) g/dL Albumin/Globulin Ratio (0.9-1.6) Lipase (73-393) U/L TSH 3rd Generation (0.36-3.74) uIU/mL HCG, Qual (NEG) Urine Color Urine Appearance Urine pH (5.0-8.0) Ur Specific [place] (1.001-1.035) Urine Protein (NEGATIVE) mg/dL Urine Glucose (UA) (NEGATIVE) mg/dL Urine Ketones (NEGATIVE) mg/dL Urine Occult Blood (NEGATIVE) Urine Nitrite (NEGATIVE) Urine Bilirubin (NEGATIVE) Urine Ictotest Urine Urobilinogen (<2.0) EU/dL Ur Leukocyte Esterase (NEGATIVE) Urine RBC (0-2/HPF) Urine WBC (0-5/HPF) Ur Epithelial Cells (NONE-FEW) Urine Bacteria (NEGATIVE) Urine Mucus (NONE-MOD) Urinalysis Comment H. pylori IgG Antibody POSITIVE H (NEG) Med Orders - Current: Current Medications Amoxicillin (Amoxil 250 Mg/5 Ml Susp) 1,000 mg PO Q12H [facility] Last Admin: 08/08/18 04:03 Dose: 20 ml Clarithromycin (Biaxin 250 Mg/5 Ml Susp) 500 mg PO Q12H [facility] Last Admin: 08/08/18 04:02 Dose: 10 ml Pantoprazole Sodium 40 mg/ (Sodium Chloride) 10 mls @ 300 mls/hr IVPUSH Q12H [facility] Last Admin: 08/08/18 04:01 Dose: 300 mls/hr Ceftriaxone Sodium/Dextrose 1 (gm/ Premix) 50 mls @ 100 mls/hr IV Q24H [facility] Sodium Chloride (Sodium Chloride 0.45%) 1,000 mls @ 150 mls/hr IV ASDIRECTED [facility] Last Admin: 08/08/18 05:35 Dose: 150 mls/hr Ketorolac Tromethamine (Toradol) 15 mg IVPUSH Q6H PRN PRN Reason: Pain Stop: 08/12/18 15:03 Last Admin: 08/08/18 05:31 Dose: 15 mg Promethazine HCl (Phenergan) 25 mg IM Q6H PRN PRN Reason: Nausea Last Admin: 08/08/18 05:31 Dose: 25 mg Discontinued Medications Sodium Chloride (Normal Saline) 1,000 mls @ 999 mls/hr IV STAT ONE Stop: 08/07/18 12:35 Last Admin: 08/07/18 11:42 Dose: 999 mls/hr Ceftriaxone Sodium/Dextrose 1 (gm/ Premix) 50 mls @ 100 mls/hr IV ONETIME ONE Stop: 08/07/18 13:46 Last Admin: 08/07/18 13:23 Dose: 100 mls/hr Potassium Chloride/Sodium Chloride (1/2 Ns With 20 Meq Kcl) 1,000 mls @ 150 mls /hr IV ASDIRECTED ESTEVAN Stop: 08/07/18 21:09 Last Admin: 08/07/18 16:49 Dose: 150 mls/hr Lactated Ringer's (Ringers, Lactated) 1,000 mls @ 999 mls/hr IV .BOLUS ONE Stop: 08/07/18 15:38 Last Admin: 08/07/18 15:12 Dose: 999 mls/hr Magnesium Sulfate 2 gm/ Premix 50 mls @ 50 mls/hr IV ONETIME ONE Stop: 08/08/18 09:22 Last Admin: 08/08/18 09:05 Dose: 50 mls/hr Iopamidol (Isovue Multipack-370 (76%)) 75 ml IVPUSH ONETIME ONE Stop: 08/07/18 12:37 Last Admin: 08/07/18 12:37 Dose: 75 ml Ondansetron HCl (Zofran) 4 mg IVPUSH ONETIME ONE Stop: 08/07/18 11:36 Last Admin: 08/07/18 11:42 Dose: 4 mg Potassium Chloride (Klor-Con M20) 20 meq PO ONETIME ONE Stop: 08/07/18 17:18 Last Admin: 08/07/18 18:25 Dose: 20 meq - Exam General: Alert, Oriented, Cooperative Lungs: Clear to Auscultation, Normal Respiratory Effort Cardiovascular: Regular Rate, Regular Rhythm GI/Abdominal Exam: Normal Bowel Sounds, Soft, Non-Tender, No Distention, No Mass Back Exam: Normal Inspection, Full Range of Motion Extremities: Normal Inspection, Normal Range of Motion, Non-Tender, No Pedal Edema Neurological: No New Focal Deficit Psy/Mental Status: Alert, Normal Affect, Normal Mood - Problem List & Annotations (1) H. pylori infection SNOMED Code(s): 562334958 Code(s): A04.8 - OTHER SPECIFIED BACTERIAL INTESTINAL INFECTIONS Status: Acute Priority: High Current Visit: Yes (2) Dehydration SNOMED Code(s): 20574390 Code(s): E86.0 - DEHYDRATION Status: Acute Priority: High Current Visit : Yes (3) Odynophagia SNOMED Code(s): 33787721 Code(s): R13.10 - DYSPHAGIA, UNSPECIFIED Status: Acute Current Visit: Yes (4) UTI (urinary tract infection) SNOMED Code(s): 56898086 Code(s): N39.0 - URINARY TRACT INFECTION, SITE NOT SPECIFIED Status: Acute Current Visit: Yes Qualifiers: Urinary tract infection type: acute cystitis Hematuria presence: with hematuria Qualified Code(s): N30.01 - Acute cystitis with hematuria (5) Unexplained weight loss SNOMED Code(s): 256776396 Code(s): R63.4 - ABNORMAL WEIGHT LOSS Status: Acute Priority: High Current Visit: Yes - Problem List Review Problem List Initiated/Reviewed/Updated: Yes - My Orders Last 24 Hours: My Active Orders 08/07/18 11:27 CULTURE URINE [RM] Routine 08/07/18 14:40 Consult to Physician [CONS] Routine 08/07/18 14:41 Intake and Output [RC] Q12HR May Shower [RC] ASDIRECTED Notify Provider Consults [RC] ASDIRECTED Oxygen Therapy [RC] PRN Up ad Dalia [RC] ASDIRECTED VTE/DVT Education [RC] PER UNIT ROUTINE Vital Signs [RC] Q4H Promethazine [Phenergan] 25 mg IM Q6H PRN Resuscitation Status Routine 08/07/18 14:42 Antiembolic Devices [RC] PER UNIT ROUTINE Sequential Compression Device [OM.PC] Per Unit Routine 08/07/18 14:45 Pantoprazole [ProTONIX IV] 40 mg Sodium Chloride 0.9% [Normal Saline] 10 ml IVPUSH Q12H 08/07/18 15:00 Amoxicillin [Amoxil 250 MG/5 ML Susp] 1,000 mg PO Q12H Clarithromycin [Biaxin 250 mg/5 ml Susp] 500 mg PO Q12H 08/07/18 15:03 Ketorolac [Toradol] 15 mg IVPUSH Q6H PRN 08/07/18 23:45 Sodium Chloride 0.45% 1,000 ml IV ASDIRECTED 08/07/18 Dinner Clear Liquid Diet [DIET] 08/08/18 08:00 UGI w Air wo KUB [CR] Routine 08/08/18 13:00 cefTRIAXone [Rocephin in Dextrose,Iso-Osm 1 GM/50 ML] 1 gm Premix Bag 1 bag IV Q24H 08/08/18 Breakfast NPO After Midnight [Nothing per Oral After Midnight Diet] [DIET] - Plan Plan:: This 38 year old female admitted with Dehydration, N/V, and H pylori infection 1. Dehydration: Improving with IVFs. will continue for now. 2. H pylori: Able to use suspension for Clarithromycin 500mg and Amoxicillin 1 g PO BID so will use this. Then Protonix IV BID. Suspected H pylori gastritis. Consulted Dr Navarrete, General surgery. Upper GI series pending. 3. N/V: Use above to treat H pylori, Phenergan IM to help with nausea. Keep CL diet VTE prophylaxis: Lovenox. Dispo: 1-2 days pending improvement.
[2018-08-08] MEDS ORDERED: cefTRIAXone 1 GM in Premix Bag 1 BAG IV SCH (13:00)
--- NOTE | 2018-08-08 13:23 | CR ---
EXAMINATION: Double contrast upper GI HISTORY: Odontophagia COMPARISON: None TECHNIQUE: Standard double contrast upper GI was performed. FINDINGS: There was aversion to swallowing. However the esophagus is normal in caliber. No filling defect or ulceration. Motility and mucosa appear normal. No hiatal hernia. Minimal gastroesophageal reflux. The stomach was not optimally distended. No filling defects or ulcerations. Rugal fold pattern appears normal. Duodenal bulb and sweep appear normal. IMPRESSION: 1. Grossly unremarkable double contrast upper GI. 2. Trace gastroesophageal reflux.
--- NOTE | 2018-08-08 14:11 | PCM.DCSUM1 ---
Discharge Summary - Hospital Course Brief History: This 38 year old female with pmh of breast ca with double mastectomy, hiatal hernia with past H pylori infection presented to the ED with continuing concerns of N/V and painful, difficult swallowing. She reports this all started approximately 1 week ago, but reports the N/V started intermittently before then. She reports pain is elicited after she eats, which then she experiences N/V She reports she is having a tough time swallowing anything, even water. She reports she lets popsicles melt to then swallow them and even small tablets of Phenergan she is having a tough time swallowing. She denies overt abdominal pain, does not know when her last bowel movement was. . She reports in she was diagnosed with hiatal hernia and H pylori. She has had no issues since then. She denies black or blood in BMs, no blood in her emesis or no coffee ground emesis. She denies fevers, chills or dyspnea. NO chest pain or abdominal pain. reports some burning with urination. No neurological concerns. Mild headache intermittently. No neck pain or visual concerns. In the ED, no leukocytosis noted. Hgb 15.8 and HCT 46.5. K+ 3.3 Mg 1.8 and phos 2.5 TSH 1.59. HCG negative. H pylori antibody +, Chest CT negative. UA very concentrated, +2 bacteria noted. Rocephin given in the ED along with Zofran and 1 L fluids. She was admitted for N/V and odynophagia. Upon review of outpatient record, she did recently have RUQ US with Dr Verma as well, which was negative. HIDA scan was possibility as well as EGD to further evaluate causes. PCP, Dr Verma Diagnosis: Stroke: No - Discharge Data Discharge Date: 08/08/18 Discharge Disposition: Home, Self-Care 01 Condition: Good - Discharge Diagnosis/Problem(s) (1) H. pylori infection SNOMED Code(s): 566596125 ICD Code: A04.8 - OTHER SPECIFIED BACTERIAL INTESTINAL INFECTIONS Status: Acute Priority: High Current Visit: Yes (2) Dehydration SNOMED Code(s): 18583466 ICD Code: E86.0 - DEHYDRATION Status: Acute Priority: High Current Visit: Yes (3) Odynophagia SNOMED Code(s): 24434886 ICD Code: R13.10 - DYSPHAGIA, UNSPECIFIED Status: Acute Current Visit: Yes (4) UTI (urinary tract infection) SNOMED Code(s): 93041859 ICD Code: N39.0 - URINARY TRACT INFECTION, SITE NOT SPECIFIED Status: Acute Current Visit: Yes Qualifiers: Urinary tract infection type: acute cystitis Hematuria presence: with hematuria Qualified Code(s): N30.01 - Acute cystitis with hematuria (5) Unexplained weight loss SNOMED Code(s): 758462409 ICD Code: R63.4 - ABNORMAL WEIGHT LOSS Status: Acute Priority: High Current Visit: Yes - Patient Summary/Data Consults: Consultations 08/07/18 14:40 Consult to Physician [CONS] Routine - Patient Instructions Diet: Full Liquid Diet, GI Soft/Low Residue/Low Fiber Activity: As Tolerated Showering/Bathing: May Shower Notify Provider of: Fever, Increased Pain, Swelling and Redness, Drainage, Nausea and/or Vomiting - Discharge Plan *PRESCRIPTION DRUG MONITORING PROGRAM REVIEWED*: Not Applicable *COPY OF PRESCRIPTION DRUG MONITORING REPORT IN PATIENT [place]ANN[place]: Not Applicable Prescriptions/Med Rec: Amoxicillin [Amoxil 250 MG/5 ML Susp] 1,000 mg PO Q12H 13 Days #1 bottle Cephalexin [Keflex] 500 mg PO BID #6 capsule Clarithromycin [Biaxin 250 mg/5 ml Susp] 500 mg PO Q12H 13 Days #1 bottle Pantoprazole Sodium [Protonix] 40 mg PO BID #60 tablet. Promethazine [Phenergan] 25 mg PO TID PRN #15 tablet PRN Reason: Nausea Home Medications: Home Meds Amoxicillin [Amoxil 250 MG/5 ML Susp] 1,000 mg PO Q12H 13 Days #1 bottle [Rx] Cephalexin [Keflex] 500 mg PO BID #6 capsule 08/08/18 [Rx] Clarithromycin [Biaxin 250 mg/5 ml Susp] 500 mg PO Q12H 13 Days #1 bottle [Rx] Pantoprazole Sodium [Protonix] 40 mg PO BID #60 tablet. 08/08/18 [Rx] Promethazine [Phenergan] 25 mg PO TID PRN #15 tablet 08/08/18 [Rx] Oxygen Therapy Mode: Room Air Referrals: Shashank Navarrete MD [Physician] - Eduar Verma MD [Primary Care Provider] - - Discharge Summary/Plan Comment DC Time >30 min.: No Discharge Summary/Plan Comment: Admitting diagnoses: Nausea vomiting Odynophagia Dehydration Weight loss Discharge Diagnoses: H pylori gastritis Other PMH: Hx breast ca, double mastectomy Hiatal hernia Hyun was admitted secondary to dehydration, N/V, and odynophagia. She was agressively hydrated with IVFs. H pylori antibody returned positive, she has had previous infection in 1998. She was started on treatment with Clarithromycin , Amoxicillin and Protonix due to symptoms. We consulted Dr Navarrete general surgeon regarding possible EGD or recommendations for further evaluation. Upper GI series was recommended and performed this morning. UGI revealed grossly unremarkable double contrast upper GI, trace gastroesophageal reflux. Some aversion to swallowing was noted. Hyun was updated on imaging results. I spoke with Dr Navarrete who recommended continued treatment for H pylori, with possible EGD in coming 3-4 weeks. She felt comfortable with this. She then requested discharge home today. She is taking some CLs in but not much. She was instructed to keep diet FL to soft for now and advance as tolerated. If she continues to no improve to contact PCP or return to ED for evaluation. She will also be sent home on 3 more days of Keflex for mild UTI noted on admission. She will be continued on Amoxicillin 1000 mg BID, Clarithromycin 500 mg BID and Protonix 40 mg BID for H pylori. Encouraged smoking cessation. - General Info Date of Service: 08/08/18 Admission Dx/Problem (Free Text: Admission Diagnosis/Problem Admission Diagnosis/Problem Unexplained weight loss, N/V, odynophagia Subjective Update: Feeling improved and requesting discharge home today. No chest pain or SOB. No other concerns. reports swallowing concerns continue as well as some nausea. But she continues to want to go home. Functional Status: Reports: Pain Controlled, Ambulating, Urinating - Review of Systems General: Reports: Fatigue, Malaise. Denies: Fever, Weakness Pulmonary: Denies: No Symptoms, Shortness of Breath Cardiovascular: Reports: No Symptoms. Denies: Chest Pain Gastrointestinal: Reports: Constipation, Decreased Appetite, Flatus, Nausea. Denies: Abdominal Pain Genitourinary: Reports: No Symptoms. Denies: Dysuria, Frequency, Burning Musculoskeletal: Reports: No Symptoms Skin: Reports: No Symptoms Neurological: Reports: No Symptoms Psychiatric: Reports: No Symptoms - Patient Data Vitals - Most Recent: Last Vital Signs Temp 97.2 F 08/08/18 11:43 Pulse 64 08/08/18 11:43 Resp 22 H 08/08/18 11:43 BP 97/68 08/08/18 11:43 Pulse Ox 100 08/08/18 11:43 Weight - Most Recent: 65.499 kg I&O - Last 24 hours: Intake & Output 08/07/18 08/08/18 08/08/18 22:59 06:59 14:59 Intake Total 1310 1670 100 Output Total 0 400 Balance 1310 1270 100 Lab Results - Last 24 hrs: Laboratory Results - last 24 hr 08/07/18 08/08/18 08/08/18 Range/Units 11:20 05:45 05:45 WBC 4.25 (4.0-11.0) K/uL RBC 4.11 L (4.30-5.90) M/uL Hgb 12.5 (12.0-16.0) g/dL Hct 38.2 (36.0-46.0) % MCV 92.9 (80.0-98.0) fL MCH 30.4 (27.0-32.0) pg MCHC 32.7 (31.0-37.0) g/dL RDW Std Deviation 46.6 (28.0-62.0) fl RDW Coeff of Hawa 14 (11.0-15.0) % Plt Count 159 (150-400) K/uL MPV 10.60 (7.40-12.00) fL Neut % (Auto) 49.7 (48.0-80.0) % Lymph % (Auto) 35.8 (16.0-40.0) % [place] % (Auto) 8.9 (0.0-15.0) % Eos % (Auto) 4.2 (0.0-7.0) % Baso % (Auto) 1.4 (0.0-1.5) % Neut # (Auto) 2.1 (1.4-5.7) K/uL Lymph # (Auto) 1.5 (0.6-2.4) K/uL [place] # (Auto) 0.4 (0.0-0.8) K/uL Eos # (Auto) 0.2 (0.0-0.7) K/uL Baso # (Auto) 0.1 (0.0-0.1) K/uL Nucleated RBC % 0.0 /100WBC Nucleated RBCs # 0 K/uL Sodium 141 (136-145) mmol/L Potassium 3.6 (3.5-5.1) mmol/L Chloride 108 H (98-107) mmol/L Carbon Dioxide 24.9 (21.0-32.0) mmol/L BUN 9 (7.0-18.0) mg/dL Creatinine 0.7 (0.6-1.0) mg/dL Est Cr Clr Drug Dosing 110.46 mL/min Estimated GFR (MDRD) > 60.0 ml/min Glucose 97 (74-106) mg/dL Calcium 8.1 L (8.5-10.1) mg/dL Phosphorus 2.5 L 2.5 L (2.6-4.7) mg/dL Magnesium 1.8 1.6 L (1.8-2.4) mg/dL Med Orders - Current: Current Medications Amoxicillin (Amoxil 250 Mg/5 Ml Susp) 1,000 mg PO Q12H [facility] Last Admin: 08/08/18 04:03 Dose: 20 ml Clarithromycin (Biaxin 250 Mg/5 Ml Susp) 500 mg PO Q12H [facility] Last Admin: 08/08/18 04:02 Dose: 10 ml Pantoprazole Sodium 40 mg/ (Sodium Chloride) 10 mls @ 300 mls/hr IVPUSH Q12H [facility] Last Admin: 08/08/18 04:01 Dose: 300 mls/hr Ceftriaxone Sodium/Dextrose 1 (gm/ Premix) 50 mls @ 100 mls/hr IV Q24H [facility] Last Admin: 08/08/18 13:39 Dose: 100 mls/hr Sodium Chloride (Sodium Chloride 0.45%) 1,000 mls @ 150 mls/hr IV ASDIRECTED [facility] Last Admin: 08/08/18 05:35 Dose: 150 mls/hr Ketorolac Tromethamine (Toradol) 15 mg IVPUSH Q6H PRN PRN Reason: Pain Stop: 08/12/18 15:03 Last Admin: 08/08/18 12:14 Dose: 15 mg Promethazine HCl (Phenergan) 25 mg IM Q6H PRN PRN Reason: Nausea Last Admin: 08/08/18 12:15 Dose: 25 mg Discontinued Medications Sodium Chloride (Normal Saline) 1,000 mls @ 999 mls/hr IV STAT ONE Stop: 08/07/18 12:35 Last Admin: 08/07/18 11:42 Dose: 999 mls/hr Ceftriaxone Sodium/Dextrose 1 (gm/ Premix) 50 mls @ 100 mls/hr IV ONETIME ONE Stop: 08/07/18 13:46 Last Admin: 08/07/18 13:23 Dose: 100 mls/hr Potassium Chloride/Sodium Chloride (1/2 Ns With 20 Meq Kcl) 1,000 mls @ 150 mls /hr IV ASDIRECTED [facility] Stop: 08/07/18 21:09 Last Admin: 08/07/18 16:49 Dose: 150 mls/hr Lactated Ringer's (Ringers, Lactated) 1,000 mls @ 999 mls/hr IV .BOLUS ONE Stop: 08/07/18 15:38 Last Admin: 08/07/18 15:12 Dose: 999 mls/hr Magnesium Sulfate 2 gm/ Premix 50 mls @ 50 mls/hr IV ONETIME ONE Stop: 08/08/18 09:22 Last Admin: 08/08/18 09:05 Dose: 50 mls/hr Iopamidol (Isovue Multipack-370 (76%)) 75 ml IVPUSH ONETIME ONE Stop: 08/07/18 12:37 Last Admin: 08/07/18 12:37 Dose: 75 ml Ondansetron HCl (Zofran) 4 mg IVPUSH ONETIME ONE Stop: 08/07/18 11:36 Last Admin: 08/07/18 11:42 Dose: 4 mg Potassium Chloride (Klor-Con M20) 20 meq PO ONETIME ONE Stop: 08/07/18 17:18 Last Admin: 08/07/18 18:25 Dose: 20 meq - Exam General: Reports: Alert, Oriented, Cooperative, No Acute Distress Neck: Reports: Supple Lungs: Reports: Clear to Auscultation, Normal Respiratory Effort Cardiovascular: Reports: Regular Rate, Regular Rhythm GI/Abdominal Exam: Normal Bowel Sounds, Soft, Non-Tender Extremities: Normal Inspection, Normal Range of Motion, Non-Tender Neurological: Reports: No New Focal Deficit Psy/Mental Status: Reports: Alert, Normal Affect, Normal Mood
== END 2018-08-08 15:30 | disposition home or self-care (01) ==
LOC: MW.ED 11:05 → MW.MS 13:46
PROVIDERS: ADMIT Internal Medicine; ATTEND Internal Medicine
DX: A04.8 Other specified bacterial intestinal infections (principal); E86.0 Dehydration; R13.10 Dysphagia, unspecified; N39.0 Urinary tract infection, site not specified; N30.01 Acute cystitis with hematuria; R63.4 Abnormal weight loss; J45.909 Unspecified asthma, uncomplicated; F17.200 Nicotine dependence, unspecified, uncomplicated; Z88.8 Allergy status to other drugs, medicaments and biological substances; Z79.899 Other long term (current) drug therapy
CPT/HCPCS: 36415; 71260; 74246; 80048; 80053; 81001; 83690; 83735; 84100; 84443; 84703; 85025; 85610; 86677; 87086; 93005; 96361; 96365; 96372; 96375; 96376; 99285; A9270; C9113; G0378; J0696; J1885; J2405; J2550; J3475; J3480; J7030; J7040; J7050; J7120; Q9967; 99283